=== PATIENT | male | born 1960 | race Asian ===

== ENCOUNTER 2020-04-21 12:16 | Outpatient (REF) | payer OTHER, SELFPAY ==
[2020-04-21 14:39] LABS: Alanine Aminotransferase 26 U/L (0-40); Albumin Level 4.3 g/dL (3.5-5.0); Alkaline Phosphatase 52 U/L (39-117); Anion Gap 12 (12-20); Aspartate Amino Transferase 43 U/L (5-37); Bilirubin Total 1.3 mg/dL (0.0-1.0); Blood Urea Nitrogen 17 mg/dL (9-16); Carbon Dioxide 30 mmol/L (22-29); Chloride 100 mmol/L (96-108); Cholesterol 146 mg/dL; Estimated Glomerular Filt Rate > 60; Glucose Fasting 94 mg/dL (60-99); HDL Cholesterol 52 mg/dL; LDL Cholesterol Calculated 74 mg/dl; Potassium 4.2 mmol/l (3.3-5.1); Sodium 138 mmol/L (135-145); Total Protein 6.8 g/dL (6.5-8.0); Triglycerides 100 mg/dL
== END 2020-04-21 12:17 | disposition home or self-care (01) ==
LOC: HO.10HDL 12:16
PROVIDERS: Visit Provider Internal Medicine
DX: E78.00 Pure hypercholesterolemia, unspecified (principal); I10 Essential (primary) hypertension; R73.01 Impaired fasting glucose
CPT/HCPCS: 80053; 80061

== ENCOUNTER 2020-08-18 09:38 | Outpatient (REF) | payer OTHER, SELFPAY ==
[2020-08-18 10:12] LABS: MANUAL DIFF FLAG NO
[2020-08-18 10:20] LABS: Basophils Percent Auto 0.5 % (0-2); Eosinophils Absolute Auto 0.2 X10*3/uL (0.0-0.4); Eosinophils Percent Auto 3.3 % (0-4); Hematocrit 41.7 % (42-52); Hemoglobin 13.9 g/dl (14.0-18.0); Imm Gran Abs Auto 0.01 X10*3/uL (0.00-0.03); Imm Gran Pct Auto 0.2 % (0.0-0.4); Lymphocytes Absolute Auto 2.3 X10*3/uL (1.2-4.9); Lymphocytes Percent Auto 37.7 % (20-40); Mean Corpuscular HGB Conc 33.3 g/dl (31.0-36.0); Mean Corpuscular Hemoglobin 29.7 pg (27.0-33.0); Mean Corpuscular Volume 89.1 fL (80-98); Mean Platelet Volume 9.2 fL (9.4-12.4); Monocytes Absolute Auto 0.4 X10*3/uL (0.1-1.2); Monocytes Percent Auto 6.5 % (2-11); Neutrophils Absolute Auto 3.2 X10*3/uL (2.0-8.3); Neutrophils Percent Auto 51.8 % (45-73); Platelet Count 326 X10*3/uL (160-400); Red Blood Count 4.68 X10*6/uL (4.60-5.80); Red Cell Distribution Width 12.1 % (11.0-16.0); White Blood Count 6.2 X10*3/uL (4.8-10.8)
[2020-08-18 10:35] LABS: Glucose Urine UA NEG (NEG); Leukocyte Esterase Urine NEG (NEG); Nitrite Urine NEG (NEG); PH 6.5 (5.0-8.0); Urine Blood NEG (NEG); Urine Ketones NEG (NEG); Urine Protein NEG (NEG-TRACE)
[2020-08-18 10:37] LABS: Appearance Urine CLEAR; Color Urine YELLOW
[2020-08-18 10:40] LABS: Alanine Aminotransferase 29 U/L (0-40); Albumin Level 4.7 g/dL (3.5-5.0); Alkaline Phosphatase 56 U/L (39-117); Anion Gap 12 (12-20); Aspartate Amino Transferase 52 U/L (5-37); Bilirubin Total 1.6 mg/dL (0.0-1.0); Blood Urea Nitrogen 18 mg/dL (9-16); Calcium 9.4 mg/dL (8.4-10.2); Carbon Dioxide 32 mmol/L (22-29); Chloride 98 mmol/L (96-108); Cholesterol 150 mg/dL; Estimated Glomerular Filt Rate > 60; Glucose Fasting 96 mg/dL (60-99); HDL Cholesterol 57 mg/dL; LDL Cholesterol Calculated 79 mg/dl; Potassium 3.9 mmol/L (3.3-5.1); Sodium 138 mmol/L (135-145); Total Protein 7.3 g/dL (6.5-8.0); Triglycerides 72 mg/dL
== END 2020-08-18 09:39 | disposition home or self-care (01) ==
LOC: HO.10HDL 09:38
PROVIDERS: Visit Provider Internal Medicine
DX: E78.00 Pure hypercholesterolemia, unspecified (principal); I10 Essential (primary) hypertension; R73.01 Impaired fasting glucose
CPT/HCPCS: 36415; 80053; 80061; 81003; 85025

== ENCOUNTER 2020-10-05 07:27 | Outpatient (REF) | payer OTHER, SELFPAY ==
--- NOTE | ~2020-10-05 | MR_ITS ---
EXAMINATION: MR LUMBAR SPINE WITHOUT CONTRAST CLINICAL INFORMATION: Lower back pain with right leg pain, numbness, weakness. COMPARISON: Lumbar spine radiographs dated 10/29/2011 TECHNIQUE: MRI of the lumbar spine was obtained using routine sequences without contrast. FINDINGS: VERTEBRAL BODIES AND PARASPINAL STRUCTURES: Straightening of the normal lumbar lordosis, which may be positional or related to muscular spasm. Minimal grade 1 retrolisthesis of L3 on L4. No acute fracture. No loss of vertebral body height. Loss of intervertebral disc height with disc desiccation at L2-L4 and at L5-S1. Modic type II degenerative endplate changes at L3-L4 and L5-S1. The visualized paraspinal soft tissues are unremarkable. CONUS MEDULLARIS AND CAUDA EQUINA: Normal, terminating at the level of L1. SPINAL LEVELS: T12-L1: Minimal disc bulge with bilateral facet arthropathy. No significant central canal or neural foraminal stenosis. L1-L2: Mild broad-based disc bulge with prominent bilateral facet arthropathy and thickening of the ligamentum flavum. No significant central canal or neural foraminal stenosis. L2-L3: Mild broad-based disc bulge with bilateral facet arthropathy and thickening of the ligamentum flavum causing mild central canal stenosis which encroaches upon the traversing bilateral L3 nerve roots. Additionally, this causes mild bilateral neural foraminal stenosis. L3-L4: Broad-based disc bulge with prominent bilateral facet arthropathy and thickening of the ligamentum flavum which causes [id number] central canal stenosis and encroaches upon the traversing bilateral L4 nerve roots. Additionally, this causes [id number] bilateral neural foraminal stenosis. L4-L5: Broad-based disc bulge with posterior annular fissuring. Prominent bilateral facet arthropathy and thickening of the ligamentum flavum causing moderate central canal stenosis which encroaches upon the traversing nerve roots as well as causes moderate bilateral neural foraminal stenosis, left greater than right. L5-S1: Broad-based disc bulge, slightly asymmetric to the right with bilateral facet arthropathy causing moderate central canal stenosis which encroaches upon the traversing bilateral S1 nerve roots. Additionally, this causes severe bilateral neural foraminal stenosis. MR/MR lumbar spine wo con IMPRESSION: 1. Broad-based disc bulge at L2-L3 with bilateral facet arthropathy and thickening of the ligamentum flavum causing mild central canal stenosis which encroaches upon the traversing bilateral L3 nerve roots and causes mild bilateral neural foraminal stenosis. 2. Broad-based disc bulge at L3-L4 with prominent bilateral facet arthropathy and thickening of the ligamentum flavum causing [id number] central canal stenosis encroaching upon the traversing bilateral L4 nerve roots and causing [id number] bilateral neural foraminal stenosis. 3. Broad-based disc bulge at L4-L5 with posterior annular fissuring, prominent bilateral facet arthropathy, and thickening of the ligamentum flavum causing moderate central canal stenosis encroaching upon the traversing nerve roots as well as causing moderate bilateral neural foraminal stenosis, left greater than right. 4. Broad-based disc bulge at L5-S1, slightly asymmetric to the right with bilateral facet arthropathy causing moderate central canal stenosis and encroaching upon the traversing bilateral L1 nerve roots as well as causing severe bilateral neural foraminal stenosis.
== END 2020-10-05 07:28 | disposition home or self-care (01) ==
LOC: HO.MRI 07:27
PROVIDERS: Visit Provider Internal Medicine
DX: M48.061 Spinal stenosis, lumbar region without neurogenic claudication (principal); M54.16 Radiculopathy, lumbar region; R20.2 Paresthesia of skin
CPT/HCPCS: 72148

== ENCOUNTER 2020-12-23 12:21 | Outpatient (REF) | payer OTHER, SELFPAY ==
[2020-12-23 13:44] LABS: Alanine Aminotransferase 28 U/L (0-40); Albumin Level 4.4 g/dL (3.5-5.0); Alkaline Phosphatase 63 U/L (39-117); Anion Gap 14 (12-20); Aspartate Amino Transferase 45 U/L (5-37); Blood Urea Nitrogen 17 mg/dL (9-16); Carbon Dioxide 29 mmol/L (22-29); Chloride 102 mmol/L (96-108); Cholesterol 157 mg/dL; Estimated Glomerular Filt Rate > 60; Glucose Fasting 120 mg/dL (60-99); HDL Cholesterol 59 mg/dL; LDL Cholesterol Calculated 64 mg/dl; Potassium 4.5 mmol/L (3.3-5.1); Sodium 140 mmol/L (135-145); Triglycerides 174 mg/dL
== END 2020-12-23 12:22 | disposition home or self-care (01) ==
LOC: HO.LAB 12:21
PROVIDERS: PCP Internal Medicine; Visit Provider Internal Medicine
DX: E78.00 Pure hypercholesterolemia, unspecified (principal); I10 Essential (primary) hypertension; R73.01 Impaired fasting glucose
CPT/HCPCS: 36415; 80053; 80061

== ENCOUNTER → 2020-12-28 09:47 | Outpatient (BNVA) | payer OTHER, SELFPAY | PROVIDERS: PCP Internal Medicine; Referring Provider Internal Medicine; Visit Provider Internal Medicine Cardiovascular Disease | DX: R07.89 Other chest pain (principal); I10 Essential (primary) hypertension; I45.10 Unspecified right bundle-branch block; E78.00 Pure hypercholesterolemia, unspecified; E55.9 Vitamin D deficiency, unspecified; E66.9 Obesity, unspecified; Z68.29 Body mass index [BMI] 29.0-29.9, adult | CPT/HCPCS: 93005 ==

== ENCOUNTER 2021-01-25 08:00 | Outpatient (RCR) | payer OTHER, SELFPAY | END 2021-03-10 13:18 | disposition home or self-care (01) | LOC: HO.PT 08:00 | PROVIDERS: PCP Internal Medicine; Visit Provider Neurological Surgery | DX: M54.16 Radiculopathy, lumbar region (principal) | CPT/HCPCS: 97110; 97140; 97161; 97530 ==

== ENCOUNTER 2021-05-18 09:09 | Outpatient (REF) | payer OTHER, SELFPAY ==
[2021-05-18 10:28] LABS: Alanine Aminotransferase 36 U/L (0-40); Albumin Level 4.5 g/dL (3.5-5.0); Alkaline Phosphatase 52 U/L (39-117); Anion Gap 13 (12-20); Aspartate Amino Transferase 60 U/L (5-37); Bilirubin Total 1.1 mg/dL (0.0-1.0); Blood Urea Nitrogen 12 mg/dL (9-16); Calcium 9.6 mg/dL (8.4-10.2); Carbon Dioxide 29 mmol/L (22-29); Chloride 100 mmol/L (96-108); Cholesterol 146 mg/dL; Estimated Glomerular Filt Rate > 60; Glucose Fasting 98 mg/dL (60-99); HDL Cholesterol 54 mg/dL; LDL Cholesterol Calculated 77 mg/dl; Potassium 3.9 mmol/L (3.3-5.1); Sodium 138 mmol/L (135-145); Triglycerides 79 mg/dL
== END 2021-05-18 09:10 | disposition home or self-care (01) ==
LOC: HO.10HDL 09:09
PROVIDERS: Visit Provider Internal Medicine
DX: E78.00 Pure hypercholesterolemia, unspecified (principal)
CPT/HCPCS: 36415; 80053; 80061

== ENCOUNTER 2021-09-19 13:02 | Outpatient (REF) | payer OTHER, SELFPAY ==
[2021-09-19 13:51] LABS: Alanine Aminotransferase 48 U/L (0-40); Albumin Level 4.4 g/dL (3.5-5.0); Alkaline Phosphatase 54 U/L (39-117); Anion Gap 12 (12-20); Aspartate Amino Transferase 57 U/L (5-37); Bilirubin Total 1.5 mg/dL (0.0-1.0); Blood Urea Nitrogen 17 mg/dL (9-16); Calcium 9.8 mg/dL (8.4-10.2); Carbon Dioxide 31 mmol/L (22-29); Chloride 99 mmol/L (96-108); Cholesterol 161 mg/dL; Estimated Glomerular Filt Rate > 60; Glucose Fasting 113 mg/dL (60-99); HDL Cholesterol 47 mg/dL; LDL Cholesterol Calculated 91 mg/dl; Potassium 4.1 mmol/L (3.3-5.1); Sodium 138 mmol/L (135-145); Total Protein 6.9 g/dL (6.5-8.0); Triglycerides 117 mg/dL
== END 2021-09-19 13:03 | disposition home or self-care (01) ==
LOC: HO.LAB 13:02
PROVIDERS: PCP Internal Medicine; Visit Provider Internal Medicine
DX: E78.00 Pure hypercholesterolemia, unspecified (principal)
CPT/HCPCS: 36415; 80053; 80061

== ENCOUNTER 2022-01-09 08:58 | Outpatient (REF) | payer OTHER, SELFPAY ==
--- NOTE | ~2022-01-09 | US_ITS ---
EXAMINATION: US ABDOMEN COMPLETE CLINICAL INFORMATION: Other specified abnormal findings of blood chemistry. COMPARISON: None TECHNIQUE: Real-time imaging of the abdominal viscera. FINDINGS: PANCREAS: The head and body pancreas is homogeneous. The tail is obscured by overlying gas ABDOMINAL AORTA: The proximal, mid, and distal segments are normal in caliber. INFERIOR VENA CAVA: Visualized portions are normal. LIVER: Normal. The liver is normal in size. The liver contour is normal. Parenchymal echogenicity is normal. No focal hepatic lesion. There is no intrahepatic biliary duct dilatation seen. GALLBLADDER: The gallbladder wall thickness is 0.2 cm. The gallbladder is physiologically distended without evidence of stones, sludge, polyps, wall thickening or pericholecystic fluid. COMMON BILE DUCT: Normal in caliber measuring 0.2 cm in diameter. RIGHT KIDNEY: Normal. No hydronephrosis. No renal calculi or focal parenchymal lesions. The kidney measures 10.6 cm in maximum dimension. LEFT KIDNEY: Normal. No hydronephrosis. No renal calculi or focal parenchymal lesions. The kidney measures 11.5 cm in maximum dimension. SPLEEN: Normal. The spleen measures 10.4 cm in maximum dimension. FREE FLUID: None. US/US abdomen complete IMPRESSION: Unremarkable complete abdominal ultrasound.
== END 2022-01-09 08:59 | disposition home or self-care (01) ==
LOC: HO.US 08:58
PROVIDERS: Visit Provider Internal Medicine
DX: R79.89 Other specified abnormal findings of blood chemistry (principal)
CPT/HCPCS: 76700

== ENCOUNTER 2022-03-16 12:19 | Outpatient (REF) | payer OTHER, SELFPAY ==
[2022-03-16 13:30] LABS: MANUAL DIFF FLAG NO
[2022-03-16 13:34] LABS: Basophils Percent Auto 0.5 % (0-2); Eosinophils Absolute Auto 0.3 X10*3/uL (0.0-0.4); Eosinophils Percent Auto 5.3 % (0-4); Hematocrit 42.4 % (42.0-52.0); Hemoglobin 14.4 g/dl (14.0-18.0); Imm Gran Abs Auto 0.01 X10*3/uL (0.00-0.03); Imm Gran Pct Auto 0.2 % (0.0-0.4); Lymphocytes Absolute Auto 1.8 X10*3/uL (1.2-4.9); Lymphocytes Percent Auto 31.5 % (20-40); Mean Corpuscular Hemoglobin 29.4 pg (27.0-33.0); Mean Corpuscular Volume 86.5 fL (80.0-98.0); Mean Platelet Volume 9.1 fL (9.4-12.4); Monocytes Absolute Auto 0.5 X10*3/uL (0.1-1.2); Monocytes Percent Auto 9.1 % (2-11); Neutrophils Absolute Auto 3.1 x10*3/uL (2.0-8.3); Neutrophils Percent Auto 53.4 % (45-73); Platelet Count 307 X10*3/uL (160-400); Red Cell Distribution Width 12.1 % (11.0-16.0); White Blood Count 5.9 X10*3/uL (4.8-10.8)
[2022-03-16 13:40] LABS: Appearance Urine Clear; Color Urine Yellow; Glucose Urine UA Negative (Negative); Leukocyte Esterase Urine Negative (Negative); Nitrite Urine Negative (Negative); Urine Blood Negative (Negative); Urine Ketones Negative (Negative); Urine Protein Negative (Neg-Trace)
[2022-03-16 14:16] LABS: Alanine Aminotransferase 31 U/L (0-40); Albumin Level 4.3 g/dL (3.5-5.0); Alkaline Phosphatase 57 U/L (39-117); Anion Gap 13 (12-20); Aspartate Amino Transferase 51 U/L (5-37); Bilirubin Total 1.5 mg/dL (0.0-1.0); Blood Urea Nitrogen 16 mg/dL (9-16); Calcium 9.4 mg/dL (8.4-10.2); Carbon Dioxide 30 mmol/L (22-29); Chloride 98 mmol/L (96-108); Cholesterol 146 mg/dL; Estimated Glomerular Filt Rate > 60; Glucose Fasting 114 mg/dL (60-99); HDL Cholesterol 48 mg/dL; LDL Cholesterol Calculated 76 mg/dl; Potassium 4.1 mmol/L (3.3-5.1); Sodium 137 mmol/L (135-145); Total Protein 6.9 g/dL (6.5-8.0); Triglycerides 114 mg/dL
== END 2022-03-16 12:20 | disposition home or self-care (01) ==
LOC: HO.10HDL 12:19
PROVIDERS: Visit Provider Internal Medicine
DX: I10 Essential (primary) hypertension (principal); E78.00 Pure hypercholesterolemia, unspecified; R79.89 Other specified abnormal findings of blood chemistry
CPT/HCPCS: 36415; 80053; 80061; 81003; 85025

== ENCOUNTER 2022-08-01 08:14 | Outpatient (REF) | payer OTHER, SELFPAY ==
[2022-08-01 11:35] LABS: Appearance Urine Clear; Color Urine Yellow; Glucose Urine UA Negative (Negative); Leukocyte Esterase Urine Negative (Negative); Nitrite Urine Negative (Negative); PH 5.5 (5.0-9.0); Specific Gravity - Urine 1.015 (1.005-1.025); Urine Blood Negative (Negative); Urine Ketones Negative (Negative); Urine Protein Negative (Neg-Trace)
[2022-08-01 11:39] LABS: Alanine Aminotransferase 48 U/L (0-40); Albumin Level 4.7 g/dL (3.5-5.0); Alkaline Phosphatase 68 U/L (39-117); Anion Gap 14 (12-20); Aspartate Amino Transferase 54 U/L (5-37); Bilirubin Total 1.2 mg/dL (0.0-1.0); Blood Urea Nitrogen 17 mg/dL (9-16); Calcium 9.8 mg/dL (8.4-10.2); Carbon Dioxide 31 mmol/L (22-29); Chloride 99 mmol/L (96-108); Cholesterol 186 mg/dL; Estimated Glomerular Filt Rate > 60; Glucose Fasting 119 mg/dL (60-99); HDL Cholesterol 57 mg/dL; LDL Cholesterol Calculated 105 mg/dl; Potassium 4.2 mmol/L (3.3-5.1); Sodium 140 mmol/L (135-145); Total Protein 7.5 g/dL (6.5-8.0); Triglycerides 120 mg/dL
[2022-08-01 12:35] LABS: Creatinine Urine 119.15 mg/dL; Microalbum/Creatinine Ratio Ur 8.3 ug/mg cr
== END 2022-08-01 08:15 | disposition home or self-care (01) ==
LOC: HO.10HDL 08:14
PROVIDERS: Visit Provider Internal Medicine
DX: E11.9 Type 2 diabetes mellitus without complications (principal); R30.0 Dysuria; E78.00 Pure hypercholesterolemia, unspecified
CPT/HCPCS: 36415; 80053; 80061; 81003; 82043

== ENCOUNTER 2022-11-23 09:08 | Outpatient (REF) | payer OTHER, SELFPAY ==
[2022-11-23 10:19] LABS: MANUAL DIFF FLAG NO
[2022-11-23 10:29] LABS: Basophils Percent Auto 0.4 % (0-2); Eosinophils Absolute Auto 0.2 X10*3/uL (0.0-0.4); Eosinophils Percent Auto 2.3 % (0-4); Hemoglobin 13.2 g/dl (14.0-18.0); Imm Gran Abs Auto 0.02 X10*3/uL (0.00-0.03); Imm Gran Pct Auto 0.3 % (0.0-0.4); Lymphocytes Absolute Auto 2.3 X10*3/uL (1.2-4.9); Lymphocytes Percent Auto 30.6 % (20-40); Mean Corpuscular HGB Conc 33.8 g/dl (31.0-36.0); Mean Corpuscular Hemoglobin 30.3 pg (27.0-33.0); Mean Corpuscular Volume 89.4 fL (80.0-98.0); Mean Platelet Volume 8.7 fL (9.4-12.4); Monocytes Absolute Auto 0.6 X10*3/uL (0.1-1.2); Monocytes Percent Auto 8.1 % (2-11); Neutrophils Absolute Auto 4.3 x10*3/uL (2.0-8.3); Neutrophils Percent Auto 58.3 % (45-73); Platelet Count 371 X10*3/uL (160-400); Red Blood Count 4.36 X10*6/uL (4.60-5.80); Red Cell Distribution Width 13.2 % (11.0-16.0); White Blood Count 7.4 X10*3/uL (4.8-10.8)
[2022-11-23 10:42] LABS: Appearance Urine Clear; Color Urine Yellow; Glucose Urine UA Negative (Negative); Leukocyte Esterase Urine Negative (Negative); Nitrite Urine Negative (Negative); PH 7.5 (5.0-9.0); Urine Blood Negative (Negative); Urine Ketones Negative (Negative); Urine Protein Negative (Neg-Trace)
[2022-11-23 11:02] LABS: Alanine Aminotransferase 26 U/L (0-40); Albumin Level 4.4 g/dL (3.5-5.0); Alkaline Phosphatase 57 U/L (39-117); Anion Gap 12 (12-20); Aspartate Amino Transferase 46 U/L (5-37); Bilirubin Total 1.5 mg/dL (0.0-1.0); Blood Urea Nitrogen 18 mg/dL (9-16); Calcium 10.2 mg/dL (8.4-10.2); Carbon Dioxide 32 mmol/L (22-29); Chloride 95 mmol/L (96-108); Cholesterol 144 mg/dL; Estimated Glomerular Filt Rate > 60; Glucose Fasting 87 mg/dL (60-99); HDL Cholesterol 61 mg/dL; LDL Cholesterol Calculated 73 mg/dl; Potassium 4.2 mmol/L (3.3-5.1); Sodium 135 mmol/L (135-145); Total Protein 7.4 g/dL (6.5-8.0); Triglycerides 53 mg/dL
[2022-11-23 11:14] LABS: Creatinine Urine 45.36 mg/dL; Microalbumin Urine < 5.0 mg/L
== END 2022-11-23 09:09 | disposition home or self-care (01) ==
LOC: HO.10HDL 09:08
PROVIDERS: Visit Provider Internal Medicine
DX: I10 Essential (primary) hypertension (principal); R30.0 Dysuria; E11.9 Type 2 diabetes mellitus without complications; E78.00 Pure hypercholesterolemia, unspecified
CPT/HCPCS: 36415; 80053; 80061; 81003; 82043; 85025

== ENCOUNTER 2023-03-08 12:30 | Outpatient (REF) | payer OTHER, SELFPAY ==
[2023-03-08 13:24] LABS: Basophils Percent Auto 0.5 % (0-2); Eosinophils Absolute Auto 0.3 X10*3/uL (0.0-0.4); Eosinophils Percent Auto 4.7 % (0-4); Hematocrit 43.8 % (42.0-52.0); Hemoglobin 14.7 g/dl (14.0-18.0); Imm Gran Abs Auto 0.01 X10*3/uL (0.00-0.03); Imm Gran Pct Auto 0.2 % (0.0-0.4); Lymphocytes Percent Auto 35.6 % (20-40); MANUAL DIFF FLAG SCAN; Mean Corpuscular HGB Conc 33.6 g/dl (31.0-36.0); Mean Corpuscular Hemoglobin 29.5 pg (27.0-33.0); Monocytes Absolute Auto 0.5 X10*3/uL (0.1-1.2); Monocytes Percent Auto 8.1 % (2-11); Neutrophils Absolute Auto 2.9 x10*3/uL (2.0-8.3); Neutrophils Percent Auto 50.9 % (45-73); PLT CLUMP 1; Red Blood Count 4.98 X10*6/uL (4.60-5.80); Red Cell Distribution Width 11.9 % (11.0-16.0); SCAN SMEAR FLAG 1; White Blood Count 5.7 X10*3/uL (4.8-10.8)
[2023-03-08 13:43] LABS: Estimated Average Glucose 120 mg/dL; Hemoglobin A1c % 5.8 % (<6.0)
[2023-03-08 13:55] LABS: Platelet Count 286 X10*3/uL (160-400); SLIDE REVIEW VERIFIED
[2023-03-08 14:15] LABS: Alanine Aminotransferase 22 U/L (0-40); Albumin Level 4.4 g/dL (3.5-5.0); Alkaline Phosphatase 57 U/L (39-117); Anion Gap 15 (12-20); Aspartate Amino Transferase 46 U/L (5-37); Bilirubin Total 1.2 mg/dL (0.0-1.0); Blood Urea Nitrogen 14 mg/dL (9-16); Calcium 9.5 mg/dL (8.4-10.2); Carbon Dioxide 28 mmol/L (22-29); Chloride 99 mmol/L (96-108); Cholesterol 148 mg/dL (<200); Estimated Glomerular Filt Rate > 60; Glucose Fasting 104 mg/dL (60-99); HDL Cholesterol 53 mg/dL (>40); LDL Cholesterol Calculated 71 mg/dL (<100); Potassium 4.2 mmol/L (3.3-5.1); Sodium 138 mmol/L (135-145); Total Protein 7.3 g/dL (6.5-8.0); Triglycerides 124 mg/dL (<150)
[2023-03-08 14:30] LABS: TSH reflex Free T4 0.51 uIU/mL (0.32-4.0)
== END 2023-03-08 12:31 | disposition home or self-care (01) ==
LOC: HO.10HDL 12:30
PROVIDERS: Visit Provider Nurse Practitioner Family
DX: Z13.0 Encounter for screening for diseases of the blood and blood-forming organs and certain disorders involving the immune mechanism (principal); Z13.29 Encounter for screening for other suspected endocrine disorder; E11.65 Type 2 diabetes mellitus with hyperglycemia; E78.00 Pure hypercholesterolemia, unspecified
CPT/HCPCS: 36415; 80053; 80061; 83036; 84443; 85025

== ENCOUNTER 2023-03-15 09:21 | Outpatient (AMB) | payer OTHER, SELFPAY ==
--- NOTE | 2023-03-15 09:21 | MHC.PC.OV ---
Vital Signs 03/15/23 09:22 Height 5 ft 11 in Weight 202 lb BMI 28.2 BP 122/74 Blood Pressure Location Lt brachial Position Sitting Pulse 71 Pulse Source Pulse Oximeter Pulse Oximetry (%) 98 Oxygen Delivery Method Room Air Intake Visit Reasons: DM, HTN, Hypercholestermia Pants Presser Required: No Accompanied by: Self / Same As Patient Allergies No Known Allergies Allergy (Verified 03/15/23 09:32) Medication List - Last Reconciled 03/15/23 by Ramo Thomas MD aspirin (Adult Low Dose Aspirin) 81 mg PO DAILY atorvastatin 20 mg PO DAILY celecoxib 200 mg PO DAILY PRN ergocalciferol (vitamin D2) (Vitamin D2) 1,250 mcg PO QWEEK fluticasone propionate 50 mcg/actuation 1 spray intranasal DAILY lisinopril-hydrochlorothiazide 20-25 mg 1 tab PO DAILY metformin 500 mg PO DAILY 30 days tizanidine 4 mg PO TID PRN 30 days tramadol 50 mg PO BID PRN Tobacco use date assessed: 03/15/23 Dental Screening Dental Screen Date: 03/15/23 Did you have a dental visit in the last 12 months?: Yes Did you have a dental problem in the last 6 months where you did not have access to dental care?: No Was dental information given to patient?: Patient has dentist HPI DM, HTN, Hypercholestermia HPI Details Patient comes in today for his follow up visit States that he feels okay Still has chronic low back pain that bothers him a lot frequently Sees Dr. Kaba at [facility] for pain management and states that the last cortisone injection he got from him in November 2022 provided him with some relief that only lasted for about a week Does not know what else he can do Notes that cold weather/rainy weather as well as prolonged walking seem to make his pain feel worse and they tend to gradually ease up with activity He denies any headaches or dizziness Denies any chest pains, no SOB No nausea/vomiting, no abdominal pain No change in bowel habits noted Needs his Tramadol Rx refilled today - states that he mostly just takes this once a day as needed Had his follow up labs done last week - to discuss his results [facility] Medical History Diabetes mellitus Paresthesia of right lower extremity Spinal stenosis of lumbar region with radiculopathy Overweight (BMI 25.0-29.9) Calcaneal spur, left Osteoarthritis of left shoulder Lumbar degenerative disc disease Left-sided chest wall pain Allergic rhinitis Vitamin D deficiency Benign essential hypertension Pure hypercholesterolemia Surgical History No significant past surgical history Family History Father Hypertension Diabetes mellitus Social History Housing: House Alcohol intake: current Alcohol intake frequency: a few times a month Alcohol type: wine Patient Tobacco Use Status: Never used Tobacco e-Cigarette/Vaping Use: Never Used Second Hand Smoke Exposure: No service: No Current occupational status: employed 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 1. Little interest or pleasure in doing things: not at all 2. Feeling down, depressed, or hopeless: not at all 3. Trouble falling or staying asleep, or sleeping too much: not at all 4. Feeling tired or having little energy: not at all 5. Poor appetite or overeating: not at all 6. Feeling bad about yourself - or that you are a failure or have let yourself or your family down: not at all 7. Trouble concentrating on things, such as reading the newspaper or watching television: not at all 8. Moving or speaking so slowly that other people could have noticed. Or the opposite - being so fidgety or restless that you have been moving around a lot more than usual: not at all 9. Thoughts that you would be better off or of hurting yourself in some way: not at all Total score: 0 Depression Screening Interpretation: Negative Depression Screening Done: Yes 20802 - PHQ-9 Billing: Yes Source: Developed by Drs. Dieudonne Marion, Nerissa Sweeney, Lalo Emmanuel and colleagues, with an educational mandeep from [employer]. Thrive Questionnaire Date Thrive assessed: 03/15/23 I am a: Patient What is your living situation today?: I have a steady place to live Within the past 12 months, did the food you bought not last and you didn't have the money to get more?: Never true Within the past 12 months, did you worry whether your food would run out before you got money to buy more?: Never true Do you have trouble paying for medicines?: No Do you have trouble getting transportation to medical appointments?: No Do you have trouble paying your heating and electricity bill?: No Do you have trouble taking care of your child, family member or friend?: No Do you have trouble with day-to-day activities such as bathing, preparing meals, shopping, managing finances, etc.?: No Are you currently unemployed and looking for a job?: No Are you interested in more education?: No Please select the resources that you would like help with: None Currently or been in a relationship where the following occur: no concerns reported AUDIT C Alcohol Use Questionnaire (AUDIT-C) 1. How often do you have a drink containing alcohol?: 2-4 times a month 2. How many drinks containing alcohol do you have on a typical day when you are drinking?: 1 or 2 3. How often do you have six or more drinks on one occasion?: Never Total Score: 2 Score Reviewed/Action Taken: Yes AMIRA-7 AMB Questionnaire AMIRA-7 Date AMIRA - 7 assessed: 03/15/23 Feeling nervous, anxious, or on edge: 0 = Not at all Not being able to stop or control worryin = Not at all Worrying too much about different things: 0 = Not at all Trouble relaxin = Not at all Being so restless that it is hard to sit still: 0 = Not at all Becoming easily annoyed or irritable: 0 = Not at all Feeling afraid as if something awful might happen: 0 = Not at all Total AMIRA-7 score (0-4 normal; 5-9 mild; 10-14 moderate; 15-21 severe): 0 Source: Developed by Drs. Dieudonne Marion, Nerissa Sweeney, Lalo Emmanuel and colleagues, with an educational mandeep from [employer]. Review of Systems Const Denies chills, Denies fatigue, Denies fever(s) and Denies headache(s) ENT Denies dysphagia, Denies dizziness, Denies otalgia, Denies headache(s), Denies neck pain, Denies odynophagia and Denies sore throat Card Denies chest pain, Denies palpitations and Denies dyspnea Resp Denies cough and Denies dyspnea GI Details: (+) frequent flare ups of his hemorrhoids lately Denies abdominal pain, Denies constipation, Denies dysphagia, Denies heartburn, Denies diarrhea, Denies nausea, Denies odynophagia and Denies vomiting Denies dysuria, Denies nocturia and Denies urinary frequency Musc Reports back pain (recurrent - improved slightly with PT but failed back injection), Denies neck pain and Reports tingling (into the right leg and foot, on and off) Skin/Breast Denies rash Neuro Denies dizziness, Denies headache(s) and Reports tingling (into the right leg and foot, on and off) Endo Denies fatigue and Denies palpitations Physical exam (Primary Care) Vital Signs: Last Vital Signs Pulse 71 03/15/23 09:22 BP 122/74 03/15/23 09:22 Pulse Ox 98 03/15/23 09:22 Oxygen Delivery Method Room Air 03/15/23 09:22 BMI result Body Mass Index 28.2 Tobacco/Smoking Status: Tobacco use Status Tobacco use date assessed 03/15/23 03/15/23 09:28 Patient Tobacco Use Status Never used Tobacco 03/15/23 09:28 e-Cigarette/Vaping Use Never Used 03/15/23 09:28 PHQ-9: PHQ-9 Score PHQ-9: Total score 0 03/15/23 09:36 Depression Screening Interpretation: Negative Thrive Assessment: Date of Thrive Assessment Date Thrive assessed 03/15/23 03/15/23 09:28 Currently or been in a relationship where the following occur: no concerns reported Const General: no acute distress and alert HENMT Ears: TM's normal bilaterally and EAC's normal Throat: Yes posterior oropharynx normal and Yes tonsils normal Neck Neck: Yes no lymphadenopathy and Yes supple Resp Auscultation: clear to auscultation bilaterally, no rales and no wheezes Cardio Rate: regular rate Rhythm: regular rhythm Heart sounds: no murmurs GI Palpation (GI): Soft to palpation and nontender Auscultation: normal bowel sounds Back/Spine/Pelvis Thoracic/Lumbar Spine: lumbar spinal tenderness Extrem General: Yes no clubbing, cyanosis or edema Results Reviewed Results Reviewed: Laboratory Tests 03/08/23 12:40 WBC 5.7 Hgb 14.7 Hct 43.8 Plt Count 286 Sodium 138 Potassium 4.2 Creatinine 0.84 Estimated GFR > 60 Fasting Glucose 104 H Hemoglobin A1c % 5.8 Calcium 9.5 D Total Bilirubin 1.2 H AST 46 H ALT 22 Triglycerides 124 Cholesterol 148 LDL Cholesterol, Calc 71 HDL Cholesterol 53 TSH 0.51 Assessment and Plan Assessment & Plan (1) Diabetes mellitus: Code(s): E11.9 - Type 2 diabetes mellitus without complications Qualifiers: Diabetes mellitus complication status: with hyperglycemia Diabetes mellitus penitentiary insulin use: without penitentiary use Diabetes mellitus type: type 2 Qualified Code(s): E11.65 - Type 2 diabetes mellitus with hyperglycemia Plan: HgbA1c is at 5.8.% on his recent labs (was at 6.0% a few months ago) - goal is <6.5% Reinforced diabetic diet Continue Metformin 500 mg QD - dose was lowered to QD dosing a few months ago Patient is hoping that if he can continue to get his HgbA1c lower than 5.8%, we can try to get him off his Rx again and keep his diabetes under control with diet modification and exercise alone (2) Pure hypercholesterolemia: Code(s): E78.00 - Pure hypercholesterolemia, unspecified Plan: Results of his labs done last week reviewed and discussed with patient Reinforced low cholesterol diet Continue Atorvastatin 20 mg QD Will recheck his labs and fasting lipids in 4 months for follow up (3) Benign essential hypertension: Code(s): I10 - Essential (primary) hypertension Plan: Reinforced low sodium diet - goal is systolic BP of 120 mm or less Continue Lisinopril-HCT 20-25 mg QD (4) Elevated LFTs: Code(s): R79.89 - Other specified abnormal findings of blood chemistry Plan: Advised that his LFTs and total bilirubin level are still slightly elevated on his recent labs Patient had an abdominal US done back in January 2022 that came out normal Patient cautioned again about taking too much Tylenol/Acetaminophen and also reminded to abstain from alcohol completely - states that he still drinks a glass of red wine every now and then Will continue to monitor his LFTs regularly (5) Vitamin D deficiency: Code(s): E55.9 - Vitamin D deficiency, unspecified Plan: Continue Vitamin D2 23834 units once a week (6) Spinal stenosis of lumbar region with radiculopathy: Comment: Lumbar spine MRI done on 06/16/2012 showed (+) spondylitic and degenerative disc changes of the lumbar spine superimposed upon a congenitally narrowed spinal canal, with foraminal narrowing most prominent at L5-S1. No discrete nerve root impingement was seen at this time Code(s): M48.061 - Spinal stenosis, lumbar region without neurogenic claudication; M54.16 - Radiculopathy, lumbar region Plan: Reinforced activity and weight-lifting restrictions Continue Tramadol 50 mg TID PRN for increased pain Has been seen by neurosurgery and was referred to physical therapy - has been to PT about 3 times and states that physical therapy has helped somewhat Has also received back injection from Dr. Kaba last year on 01/30/2021, which he states helped somewhat but another injection back in November 2022 only provided him with some relief for a week Is advised to continue following up with Dr. Kaba for management of his low back pain (7) Allergic rhinitis: Code(s): J30.9 - Allergic rhinitis, unspecified Qualifiers: Allergic rhinitis seasonality: unspecified Allergic rhinitis trigger: unspecified Qualified Code(s): J30.9 - Allergic rhinitis, unspecified Plan: Continue Fluticasone nasal spray QD PRN (8) Osteoarthritis of left shoulder: Code(s): M19.012 - Primary osteoarthritis, left shoulder Qualifiers: Osteoarthritis type: primary Qualified Code(s): M19.012 - Primary osteoarthritis, left shoulder Plan: X-rays of the left shoulder done a couple of years ago showed (+) mild to moderate arthritis changes Continue Celecoxib 200 mg QD PRN Patient is again encouraged to continue with regular shoulder exercises to help manage his shoulder symptoms more effectively (9) Overweight (BMI 25.0-29.9): Code(s): E66.3 - Overweight Plan: Reinforced diet/exercise as tolerated/lose weight Plan Follow up in 4 months Orders: Orders Complete Blood Count Auto Diff 4 Months I10 - Essential (primary) hypertension Comprehensive [place]. Panel Fast 4 Months E78.00 - Pure hypercholesterolemia, unspecified Microalbumin, Random (w Creat) 4 Months E11.9 - Type 2 diabetes mellitus without complications Lipid Panel 4 Months E78.00 - Pure hypercholesterolemia, unspecified Hemoglobin A1c 4 Months E11.9 - Type 2 diabetes mellitus without complications TSH reflex Free T4 4 Months E78.00 - Pure hypercholesterolemia, unspecified UA CC w/rflx Micro + Cult 4 Months R30.0 - Dysuria Vitamin D 25-OH Total 4 Months E55.9 - Vitamin D deficiency, unspecified Medications: Refilled tramadol 50 mg PO BID PRN 60 tabs 0RF pain Coding Level of Care Code Est Pt Level 4 (33151) Diagnoses Type 2 diabetes mellitus with hyperglycemia, without long-term current use of insulin E11.65 Diabetes mellitus complication status: with hyperglycemia Diabetes mellitus penitentiary insulin use: without joint terminal attack controller use Diabetes mellitus type: type 2 Pure hypercholesterolemia E78.00 Benign essential hypertension I10 Elevated LFTs R79.89 Vitamin D deficiency E55.9 Spinal stenosis of lumbar region with radiculopathy M48.061; M54.16 Allergic rhinitis, unspecified seasonality, unspecified trigger J30.9 Allergic rhinitis seasonality: unspecified Allergic rhinitis trigger: unspecified Primary osteoarthritis of left shoulder M19.012 Osteoarthritis type: primary Overweight (BMI 25.0-29.9) E66.3
[2023-03-15 09:22] VITALS: BP 122/74; PULSE 71; O2SAT 98; BMI 28.2
== END 2023-03-15 09:55 | disposition home or self-care (01) ==
PROVIDERS: PCP Internal Medicine; Visit Provider Internal Medicine
DX: E11.65 Type 2 diabetes mellitus with hyperglycemia (principal); E78.00 Pure hypercholesterolemia, unspecified; I10 Essential (primary) hypertension; R79.89 Other specified abnormal findings of blood chemistry; E55.9 Vitamin D deficiency, unspecified; M48.061 Spinal stenosis, lumbar region without neurogenic claudication; M54.16 Radiculopathy, lumbar region; J30.9 Allergic rhinitis, unspecified; M19.012 Primary osteoarthritis, left shoulder; E66.3 Overweight
CPT/HCPCS: 99214

== ENCOUNTER 2023-07-16 09:32 | Outpatient (REF) | payer OTHER, SELFPAY ==
[2023-07-16 09:58] LABS: MANUAL DIFF FLAG NO
[2023-07-16 10:34] LABS: Basophils Percent Auto 0.4 % (0-2); Eosinophils Absolute Auto 0.4 X10*3/uL (0.0-0.4); Eosinophils Percent Auto 4.4 % (0-4); Hematocrit 40.6 % (42.0-52.0); Hemoglobin 13.8 g/dl (14.0-18.0); Imm Gran Abs Auto 0.01 X10*3/uL (0.00-0.03); Imm Gran Pct Auto 0.1 % (0.0-0.4); Lymphocytes Absolute Auto 2.5 X10*3/uL (1.2-4.9); Lymphocytes Percent Auto 31.5 % (20-40); Mean Corpuscular Hemoglobin 29.5 pg (27.0-33.0); Mean Corpuscular Volume 86.8 fL (80.0-98.0); Monocytes Absolute Auto 0.5 X10*3/uL (0.1-1.2); Monocytes Percent Auto 6.7 % (2-11); Neutrophils Absolute Auto 4.5 x10*3/uL (2.0-8.3); Neutrophils Percent Auto 56.9 % (45-73); Platelet Count 327 X10*3/uL (160-400); Red Blood Count 4.68 X10*6/uL (4.60-5.80); Red Cell Distribution Width 12.5 % (11.0-16.0); White Blood Count 7.9 X10*3/uL (4.8-10.8)
[2023-07-16 10:45] LABS: Estimated Average Glucose 120 mg/dL; Hemoglobin A1c % 5.8 % (<6.0)
[2023-07-16 10:57] LABS: Appearance Urine Clear; Color Urine Yellow; Glucose Urine UA Negative (Negative); Leukocyte Esterase Urine Negative (Negative); Nitrite Urine Negative (Negative); PH 6.5 (5.0-9.0); Specific Gravity - Urine <= 1.005 (1.005-1.025); Urine Blood Negative (Negative); Urine Ketones Negative (Negative); Urine Protein Negative (Neg-Trace)
[2023-07-16 11:26] LABS: Alanine Aminotransferase 38 U/L (0-40); Albumin Level 4.4 g/dL (3.5-5.0); Alkaline Phosphatase 62 U/L (39-117); Anion Gap 11 (12-20); Aspartate Amino Transferase 59 U/L (5-37); Bilirubin Total 0.8 mg/dL (0.0-1.0); Blood Urea Nitrogen 18 mg/dL (9-16); Calcium 9.6 mg/dL (8.4-10.2); Carbon Dioxide 31 mmol/L (22-29); Chloride 100 mmol/L (96-108); Cholesterol 164 mg/dL (<200); Estimated Glomerular Filt Rate > 60; Glucose Fasting 103 mg/dL (60-99); HDL Cholesterol 57 mg/dL (>40); LDL Cholesterol Calculated 83 mg/dL (<100); Potassium 4.1 mmol/L (3.3-5.1); Sodium 138 mmol/L (135-145); Total Protein 7.4 g/dL (6.5-8.0); Triglycerides 123 mg/dL (<150)
[2023-07-16 11:47] LABS: TSH reflex Free T4 0.85 uIU/mL (0.32-4.0); Vitamin D 25-OH Total 27.1 ng/mL (>30)
[2023-07-16 12:25] LABS: Creatinine Urine 28.44 mg/dL; Microalbumin Urine < 5.0 mg/L
== END 2023-07-16 09:33 | disposition home or self-care (01) ==
LOC: HO.LAB 09:32
PROVIDERS: PCP Internal Medicine; Visit Provider Internal Medicine
DX: E78.00 Pure hypercholesterolemia, unspecified (principal); E11.9 Type 2 diabetes mellitus without complications; R30.0 Dysuria; I10 Essential (primary) hypertension; E55.9 Vitamin D deficiency, unspecified
CPT/HCPCS: 36415; 80053; 80061; 81003; 82043; 82306; 82570; 83036; 84443; 85025

== ENCOUNTER 2023-07-19 09:40 | Outpatient (AMB) | payer OTHER, SELFPAY ==
[2023-07-19 09:53] VITALS: BP 118/72; PULSE 65; O2SAT 97; BMI 29.2
--- NOTE | 2023-07-19 09:53 | A.OFFPC_ITS ---
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: No Accompanied by: Self / Same As Patient Allergies No Known Allergies Allergy (Verified 07/19/23 10:07) Medication List - Last Reconciled 07/19/23 by Ramo Thomas MD aspirin (Adult Low Dose Aspirin) 81 mg PO DAILY atorvastatin 20 mg PO DAILY celecoxib 200 mg PO DAILY PRN ergocalciferol (vitamin D2) (Vitamin D2) 1,250 mcg PO QWEEK fluticasone propionate 50 mcg/actuation 1 spray intranasal DAILY lisinopril-hydrochlorothiazide 20-25 mg 1 tab PO DAILY metformin 500 mg PO DAILY 30 days tizanidine 4 mg PO TID PRN 30 days tramadol 50 mg PO BID PRN Tobacco use date assessed: 07/19/23 Dental Screening Dental Screen Date: 07/19/23 Did you have a dental visit in the last 12 months?: Yes Did you have a dental problem in the last 6 months where you did not have access to dental care?: No Was dental information given to patient?: Patient has dentist HPI HTN, DM, hyperlipidemia, lumbar DDD HPI Details Patient comes in today for his follow up visit States that he feels okay He denies any headaches or dizziness Still has on and off nasal congestion and he feels this more often on the right side (in the right nostril) Relates also on and off nosebleeds lately States that he has been using his Fluticasone nasal spray regularly and feels that it helps with his symptoms Denies any chest pains, no SOB No nausea/vomiting, no abdominal pain No change in bowel habits noted Still has recurrent low back pain with frequent radiation of pain down his right leg States that his lower back pain and right leg pain and weakness is still bothering him a lot and he is unable to walk for more than a couple of blocks without stopping Is requesting for another MRI for further evaluation Had his follow up labs done a few days ago - to discuss his results [facility] Medical History Diabetes mellitus Paresthesia of right lower extremity Spinal stenosis of lumbar region with radiculopathy Overweight (BMI 25.0-29.9) Calcaneal spur, left Osteoarthritis of left shoulder Lumbar degenerative disc disease Left-sided chest wall pain Allergic rhinitis Vitamin D deficiency Benign essential hypertension Pure hypercholesterolemia Surgical History No significant past surgical history Family History Father Hypertension Diabetes mellitus Social History Housing: House Alcohol intake: current Alcohol intake frequency: a few times a month Alcohol type: wine Patient Tobacco Use Status: Never used Tobacco e-Cigarette/Vaping Use: Never Used Second Hand Smoke Exposure: No service: No Current occupational status: employed 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 1. Little interest or pleasure in doing things: not at all 2. Feeling down, depressed, or hopeless: not at all 3. Trouble falling or staying asleep, or sleeping too much: not at all 4. Feeling tired or having little energy: not at all 5. Poor appetite or overeating: not at all 6. Feeling bad about yourself - or that you are a failure or have let yourself or your family down: not at all 7. Trouble concentrating on things, such as reading the newspaper or watching television: not at all 8. Moving or speaking so slowly that other people could have noticed. Or the opposite - being so fidgety or restless that you have been moving around a lot more than usual: not at all 9. Thoughts that you would be better off or of hurting yourself in some way: not at all Total score: 0 Depression Screening Interpretation: Negative Depression Screening Done: Yes 99574 - PHQ-9 Billing: Yes Source: Developed by Drs. Dieudonne Marion, Nerissa Sweeney, Lalo Emmanuel and colleagues, with an educational mandeep from [employer]. Thrive Questionnaire Date Thrive assessed: 07/19/23 I am a: Patient What is your living situation today?: I have a steady place to live Within the past 12 months, did the food you bought not last and you didn't have the money to get more?: Never true Within the past 12 months, did you worry whether your food would run out before you got money to buy more?: Never true Do you have trouble paying for medicines?: No Do you have trouble getting transportation to medical appointments?: No Do you have trouble paying your heating and electricity bill?: No Do you have trouble taking care of your child, family member or friend?: No Do you have trouble with day-to-day activities such as bathing, preparing meals, shopping, managing finances, etc.?: No Are you currently unemployed and looking for a job?: No Are you interested in more education?: No Please select the resources that you would like help with: None Currently or been in a relationship where the following occur: no concerns reported THRIVE Score: 0 AUDIT C Alcohol Use Questionnaire (AUDIT-C) 1. How often do you have a drink containing alcohol?: 2-4 times a month 2. How many drinks containing alcohol do you have on a typical day when you are drinking?: 1 or 2 3. How often do you have six or more drinks on one occasion?: Never Total Score: 2 Score Reviewed/Action Taken: Yes AMIRA-7 AMB Questionnaire AMIRA-7 Date AMIRA - 7 assessed: 07/19/23 Feeling nervous, anxious, or on edge: 0 = Not at all Not being able to stop or control worryin = Not at all Worrying too much about different things: 0 = Not at all Trouble relaxin = Not at all Being so restless that it is hard to sit still: 0 = Not at all Becoming easily annoyed or irritable: 0 = Not at all Feeling afraid as if something awful might happen: 0 = Not at all Total AMIRA-7 score (0-4 normal; 5-9 mild; 10-14 moderate; 15-21 severe): 0 Source: Developed by Drs. Dieudonne Marion, Nerissa Sweeney, Lalo Emmanuel and colleagues, with an educational mandeep from [employer]. Review of Systems Const Denies chills, Denies fatigue, Denies fever(s) and Denies headache(s) ENT Denies dysphagia, Denies dizziness, Denies otalgia, Denies headache(s), Reports epistaxis (occasionally), Reports nasal congestion (on and off, more often on the right side), Denies neck pain, Denies odynophagia and Denies sore throat Card Denies chest pain, Denies palpitations and Denies dyspnea Resp Denies cough and Denies dyspnea GI Denies abdominal pain, Denies constipation, Denies dysphagia, Denies heartburn, Denies diarrhea, Denies nausea, Denies odynophagia and Denies vomiting Denies dysuria, Denies nocturia and Denies urinary frequency Musc Reports back pain (recurrent - improved slightly with PT but failed back injection), Denies neck pain and Reports tingling (into the right leg and foot, on and off) Skin/Breast Denies rash Neuro Denies dizziness, Denies headache(s) and Reports tingling (into the right leg and foot, on and off) Endo Denies fatigue and Denies palpitations Physical exam (Primary Care) Vital Signs: Last Vital Signs Pulse 65 07/19/23 09:53 BP 118/72 07/19/23 09:53 Pulse Ox 97 07/19/23 09:53 Oxygen Delivery Method Room Air 07/19/23 09:53 BMI result Body Mass Index 29.2 Tobacco/Smoking Status: Tobacco use Status Tobacco use date assessed 07/19/23 07/19/23 09:59 Patient Tobacco Use Status Never used Tobacco 07/19/23 09:59 e-Cigarette/Vaping Use Never Used 07/19/23 09:59 PHQ-9: PHQ-9 Score PHQ-9: Total score 0 07/19/23 09:59 Depression Screening Interpretation: Negative Thrive Assessment: Date of Thrive Assessment Date Thrive assessed 07/19/23 07/19/23 09:59 Currently or been in a relationship where the following occur: no concerns reported Const General: no acute distress and alert HENMT Ears: TM's normal bilaterally and EAC's normal General nose exam: Nasal polyp present on the right Throat: Yes posterior oropharynx normal and Yes tonsils normal Neck Neck: Yes no lymphadenopathy and Yes supple Resp Auscultation: clear to auscultation bilaterally, no rales and no wheezes Cardio Rate: regular rate Rhythm: regular rhythm Heart sounds: no murmurs GI Palpation (GI): Soft to palpation and nontender Auscultation: normal bowel sounds Back/Spine/Pelvis Thoracic/Lumbar Spine: lumbar spinal tenderness and straight leg raise positive right Skin Rashes: no rashes Extrem General: Yes no clubbing, cyanosis or edema Results Reviewed Results Reviewed: Laboratory Tests 07/16/23 07/16/23 09:56 Unknown WBC 7.9 Hgb 13.8 L Hct 40.6 L Plt Count 327 Sodium 138 Potassium 4.1 Creatinine 0.91 Estimated GFR > 60 Fasting Glucose 103 H Hemoglobin A1c % 5.8 Calcium 9.6 AST 59 H ALT 38 Triglycerides 123 Cholesterol 164 LDL Cholesterol, Calc 83 HDL Cholesterol 57 25-OH Vitamin D Total 27.1 L TSH 0.85 Urine pH 6.5 Ur Specific [place] <= 1.005 Urine Protein Negative Urine Glucose (UA) Negative Urine Blood Negative Urine Nitrite Negative Ur Leukocyte Esterase Negative Assessment and Plan Assessment & Plan (1) Diabetes mellitus: Code(s): E11.9 - Type 2 diabetes mellitus without complications Qualifiers: Diabetes mellitus type: type 2 Diabetes mellitus correction insulin use: without correction use Diabetes mellitus complication status: with hyperglycemia Qualified Code(s): E11.65 - Type 2 diabetes mellitus with hyperglycemia Plan: HgbA1c remains unchanged at 5.8.% on his recent labs - goal is <6.5% Reinforced diabetic diet Continue Metformin 500 mg QD (2) Pure hypercholesterolemia: Code(s): E78.00 - Pure hypercholesterolemia, unspecified Plan: Results of his labs done a few days ago reviewed and discussed with patient Reinforced low cholesterol diet Continue Atorvastatin 20 mg QD Will recheck his labs and fasting lipids in 4 months for follow up (3) Benign essential hypertension: Code(s): I10 - Essential (primary) hypertension Plan: Reinforced low sodium diet - goal is systolic BP of 120 mm or less Continue Lisinopril-HCT 20-25 mg QD (4) Elevated LFTs: Code(s): R79.89 - Other specified abnormal findings of blood chemistry Plan: Advised that his AST is still slightly elevated on his recent labs; ALT is normal Patient had an abdominal US done back in January 2022 that came out normal Patient cautioned again about taking too much Tylenol/Acetaminophen and also reminded to abstain from alcohol completely Will continue to monitor his LFTs regularly (5) Vitamin D deficiency: Code(s): E55.9 - Vitamin D deficiency, unspecified Plan: Improving slowly - continue Vitamin D2 18743 units once a week (6) Spinal stenosis of lumbar region with radiculopathy: Comment: Lumbar spine MRI done on 06/16/2012 showed (+) spondylitic and degenerative disc changes of the lumbar spine superimposed upon a congenitally narrowed spinal canal, with foraminal narrowing most prominent at L5-S1. No discrete nerve root impingement was seen at this time Code(s): M48.061 - Spinal stenosis, lumbar region without neurogenic claudication; M54.16 - Radiculopathy, lumbar region Plan: Reinforced activity and weight-lifting restrictions Continue Tramadol 50 mg TID PRN for increased pain Has been seen by neurosurgery and was referred to physical therapy - has been to PT about 3 times and states that physical therapy has helped somewhat but only temporarily Has also received back injection from Dr. Kaba back on 01/30/2021, which he states helped somewhat but another injection in November 2022 only provided him with some relief for a week Due to his recently increasing low back pain and right lumbar radicular pain, is requesting to have a follow up MRI done - ordered (patient requests to have it done at [facility]) He is advised to continue following up with Dr. Kaba for management of his low back pain (7) Allergic rhinitis: Code(s): J30.9 - Allergic rhinitis, unspecified Qualifiers: Allergic rhinitis trigger: unspecified Allergic rhinitis seasonality: unspecified Qualified Code(s): J30.9 - Allergic rhinitis, unspecified Plan: Continue Fluticasone nasal spray QD PRN (8) Right nasal polyps: Code(s): J33.9 - Nasal polyp, unspecified Plan: Per request, will refer him back to ENT (has seen Dr. Jordan a couple of years ago) for further evaluation and management (9) Osteoarthritis of left shoulder: Code(s): M19.012 - Primary osteoarthritis, left shoulder Qualifiers: Osteoarthritis type: primary Qualified Code(s): M19.012 - Primary osteoarthritis, left shoulder Plan: X-rays of the left shoulder done a couple of years ago showed (+) mild to moderate arthritis changes Continue Celecoxib 200 mg QD PRN Patient is again encouraged to continue with regular shoulder exercises to help manage his shoulder symptoms more effectively (10) Overweight (BMI 25.0-29.9): Code(s): E66.3 - Overweight Plan: Reinforced diet/exercise as tolerated/lose weight Plan Follow up in 4 months Orders: Orders MR lumbar spine wo con Today M48.061 - Spinal stenosis, lumbar region without neurogenic claudication, M51.36 - Other intervertebral disc degeneration, lumbar region, M54.16 - Radiculopathy, lumbar region, R20.2 - Paresthesia of skin UA CC w/rflx Micro + Cult 4 Months R30.0 - Dysuria Microalbumin, Random (w Creat) 4 Months E11.9 - Type 2 diabetes mellitus without complications Hemoglobin A1c 4 Months E11.9 - Type 2 diabetes mellitus without complications Complete Blood Count Auto Diff 4 Months D64.9 - Anemia, unspecified Lipid Panel 4 Months E78.00 - Pure hypercholesterolemia, unspecified Comprehensive [place]. 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
== END 2023-07-19 10:31 | disposition home or self-care (01) ==
PROVIDERS: PCP Internal Medicine; Visit Provider Internal Medicine
DX: E11.65 Type 2 diabetes mellitus with hyperglycemia (principal); E78.00 Pure hypercholesterolemia, unspecified; I10 Essential (primary) hypertension; R79.89 Other specified abnormal findings of blood chemistry; E55.9 Vitamin D deficiency, unspecified; M48.061 Spinal stenosis, lumbar region without neurogenic claudication; M54.16 Radiculopathy, lumbar region; J30.9 Allergic rhinitis, unspecified; J33.9 Nasal polyp, unspecified; M19.012 Primary osteoarthritis, left shoulder; E66.3 Overweight
CPT/HCPCS: 99214

== ENCOUNTER 2023-11-15 08:11 | Outpatient (REF) | payer OTHER, SELFPAY ==
[2023-11-15 10:59] LABS: Appearance Urine Clear; Color Urine Yellow; Glucose Urine UA Negative (Negative); Leukocyte Esterase Urine Negative (Negative); MANUAL DIFF FLAG NO; Nitrite Urine Negative (Negative); PH 5.5 (5.0-9.0); Urine Blood Negative (Negative); Urine Ketones Negative (Negative); Urine Protein Negative (Neg-Trace)
[2023-11-15 11:09] LABS: Basophils Percent Auto 0.3 % (0-2); Eosinophils Absolute Auto 0.3 X10*3/uL (0.0-0.4); Eosinophils Percent Auto 4.6 % (0-4); Estimated Average Glucose 126 mg/dL; Hematocrit 36.9 % (42.0-52.0); Hemoglobin 12.5 g/dl (14.0-18.0); Imm Gran Abs Auto 0.02 X10*3/uL (0.00-0.03); Imm Gran Pct Auto 0.3 % (0.0-0.4); Lymphocytes Absolute Auto 2.1 X10*3/uL (1.2-4.9); Lymphocytes Percent Auto 35.6 % (20-40); Mean Corpuscular HGB Conc 33.9 g/dl (31.0-36.0); Mean Corpuscular Hemoglobin 29.6 pg (27.0-33.0); Mean Corpuscular Volume 87.2 fL (80.0-98.0); Monocytes Absolute Auto 0.4 X10*3/uL (0.1-1.2); Neutrophils Percent Auto 52.2 % (45-73); Platelet Count 306 X10*3/uL (160-400); Red Blood Count 4.23 X10*6/uL (4.60-5.80); Red Cell Distribution Width 12.6 % (11.0-16.0); White Blood Count 5.8 X10*3/uL (4.8-10.8)
[2023-11-15 11:13] LABS: Creatinine Urine 47.67 mg/dL; Microalbum/Creatinine Ratio Ur 18.8 ug/mg cr (<30)
[2023-11-15 11:33] LABS: Alanine Aminotransferase 32 U/L (0-40); Albumin Level 4.4 g/dL (3.5-5.0); Alkaline Phosphatase 56 U/L (39-117); Anion Gap 9 (12-20); Aspartate Amino Transferase 57 U/L (5-37); Bilirubin Total 0.8 mg/dL (0.0-1.0); Blood Urea Nitrogen 20 mg/dL (9-16); Calcium 10.1 mg/dL (8.4-10.2); Carbon Dioxide 31 mmol/L (22-29); Chloride 100 mmol/L (96-108); Cholesterol 130 mg/dL (<200); Estimated Glomerular Filt Rate > 60; Glucose Fasting 96 mg/dL (60-99); HDL Cholesterol 52 mg/dL (>40); LDL Cholesterol Calculated 66 mg/dL (<100); Potassium 4.1 mmol/L (3.3-5.1); Sodium 136 mmol/L (135-145); Triglycerides 63 mg/dL (<150)
[2023-11-15 11:55] LABS: TSH reflex Free T4 0.58 uIU/mL (0.32-4.0); Vitamin D 25-OH Total 42.1 ng/mL (>30)
== END 2023-11-15 08:12 | disposition home or self-care (01) ==
LOC: HO.10HDL 08:11
PROVIDERS: Visit Provider Internal Medicine
DX: R30.0 Dysuria (principal); D64.9 Anemia, unspecified; E11.9 Type 2 diabetes mellitus without complications; E78.00 Pure hypercholesterolemia, unspecified; E55.9 Vitamin D deficiency, unspecified
CPT/HCPCS: 36415; 80053; 80061; 81003; 82043; 82306; 82570; 83036; 84443; 85025

== ENCOUNTER 2023-11-22 09:33 | Outpatient (AMB) | payer OTHER, SELFPAY ==
[2023-11-22 09:38] VITALS: BP 142/86; PULSE 62; O2SAT 96; BMI 28.7
--- NOTE | 2023-11-22 09:38 | A.OFFPC_ITS ---
Vital Signs 11/22/23 09:38 Height 5 ft 11 in Weight 206 lb BMI 28.7 BP 142/86 H Blood Pressure Location Lt brachial Position Sitting Pulse 62 Pulse Source Pulse Oximeter Pulse Oximetry (%) 96 Oxygen Delivery Method Room Air Intake Visit Reasons: 4 month f/u Juice Mixer Required: No Accompanied by: Self / Same As Patient Allergies No Known Allergies Allergy (Verified 11/22/23 10:30) Medication List - Last Reconciled 11/22/23 by Ramo Thomas MD aspirin (Adult Low Dose Aspirin) 81 mg PO DAILY atorvastatin 20 mg PO DAILY celecoxib 200 mg PO DAILY PRN ergocalciferol (vitamin D2) (Vitamin D2) 1,250 mcg PO QWEEK fluticasone propionate 50 mcg/actuation 1 spray intranasal DAILY lisinopril-hydrochlorothiazide 20-25 mg 1 tab PO DAILY metformin 500 mg PO DAILY 30 days tizanidine 4 mg PO TID PRN 30 days tramadol 50 mg PO BID PRN Tobacco use date assessed: 07/19/23 Dental Screening Dental Screen Date: 07/19/23 HPI 4 month f/u HPI Details Patient comes in today for his follow up visit States that he feels okay He denies any headaches or dizziness Denies any chest pains, no SOB No nausea/vomiting, no abdominal pain No change in bowel habits noted He continues to experience recurrent low back pain with frequent radiation of pain down his right leg - states that he is unable to walk for more than a couple of blocks without having to stop and rest for a while due to increasing low back pain and right leg pain We requested for a repeat MRI of the lumbar spine for further evaluation at his last visit but this was DENIED by his insurance He also still has a recurrent rash over his inguinal areas that he states have been bothering him for a while now He used to see Dr. Garrison over at [facility] a few years ago but is requesting for a referral to see a different pouncing lathe operator Adds that he is now due for a repeat colonoscopy as the one he had done at [facility] was over 10 years ago - would like to have this done at [facility] again due to insurance restrictions He had his follow up labs done last week - to discuss his results [facility] Medical History (Updated 11/22/23 @ 10:56 by Ramo Thomas MD) Diabetes mellitus Paresthesia of right lower extremity Spinal stenosis of lumbar region with radiculopathy Overweight (BMI 25.0-29.9) Calcaneal spur, left Osteoarthritis of left shoulder Lumbar degenerative disc disease Allergic rhinitis Vitamin D deficiency Benign essential hypertension Pure hypercholesterolemia Surgical History No significant past surgical history Family History Father Hypertension Diabetes mellitus Social History Housing: House Alcohol intake: current Alcohol intake frequency: a few times a month Alcohol type: wine Patient Tobacco Use Status: Never used Tobacco e-Cigarette/Vaping Use: Never Used Second Hand Smoke Exposure: No service: No Current occupational status: employed 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 Dieudonne Marion, Nerissa Sweeney, Lalo Emmanuel and colleagues, with an educational mandeep from [employer]. Review of Systems Const Denies chills, Denies fatigue, Denies fever(s) and Denies headache(s) ENT Denies dysphagia, Denies dizziness, Denies otalgia, Denies headache(s), Denies neck pain, Denies odynophagia and Denies sore throat Card Denies chest pain, Denies palpitations and Denies dyspnea Resp Denies cough and Denies dyspnea GI Denies abdominal pain, Denies constipation, Denies dysphagia, Denies heartburn, Denies diarrhea, Denies nausea, Denies odynophagia and Denies vomiting Denies difficulty urinating, Denies dysuria, Denies nocturia and Denies urinary frequency Musc Reports back pain (recurrent - improved slightly with PT in the past but failed back injection), Denies neck pain, Reports radiating pain into limb (down into the right leg) and Reports tingling (into the right leg and foot, on and off) Skin/Breast Reports rash (recurrent over the inguinal areas bilaterally) Neuro Denies dizziness, Denies headache(s) and Reports tingling (into the right leg and foot, on and off) Endo Denies fatigue and Denies palpitations Physical exam (Primary Care) Vital Signs: Last Vital Signs Pulse 62 11/22/23 09:38 BP 142/86 H 11/22/23 09:38 Pulse Ox 96 11/22/23 09:38 Oxygen Delivery Method Room Air 11/22/23 09:38 BMI result Body Mass Index 28.7 Tobacco/Smoking Status: Tobacco use Status Tobacco use date assessed 07/19/23 11/22/23 09:40 Patient Tobacco Use Status Never used Tobacco 11/22/23 09:40 e-Cigarette/Vaping Use Never Used 11/22/23 09:40 Thrive Assessment: Date of Thrive Assessment Date Thrive assessed 07/19/23 11/22/23 09:40 Const General: no acute distress and alert HENMT Ears: TM's normal bilaterally and EAC's normal Throat: Yes posterior oropharynx normal and Yes tonsils normal Neck Neck: Yes no lymphadenopathy and Yes supple Resp Auscultation: clear to auscultation bilaterally, no rales and no wheezes Cardio Rate: regular rate Rhythm: regular rhythm Heart sounds: no murmurs GI Palpation (GI): Soft to palpation and nontender Auscultation: normal bowel sounds General: Yes no CVA tenderness Back/Spine/Pelvis Back: no CVA tenderness Thoracic/Lumbar Spine: lumbar spinal tenderness and straight leg raise positive (mild) right Skin Rashes: rashes noted bilateral groin Extrem General: Yes no clubbing, cyanosis or edema Results Reviewed Results Reviewed: Laboratory Tests 11/15/23 08:15 WBC 5.8 Hgb 12.5 L Hct 36.9 L Plt Count 306 Sodium 136 Potassium 4.1 Creatinine 0.94 Estimated GFR > 60 Fasting Glucose 96 Hemoglobin A1c % 6.0 Calcium 10.1 AST 57 H ALT 32 Triglycerides 63 Cholesterol 130 LDL Cholesterol, Calc 66 HDL Cholesterol 52 25-OH Vitamin D Total 42.1 TSH 0.58 Ur Specific [place] 1.010 Urine Protein Negative Urine Glucose (UA) Negative Urine Blood Negative Urine Nitrite Negative Ur Leukocyte Esterase Negative Microalb/Creat Ratio 18.8 Assessment and Plan Assessment & Plan (1) Pure hypercholesterolemia: Code(s): E78.00 - Pure hypercholesterolemia, unspecified Plan: Results of his labs done last week reviewed and discussed with patient Reinforced low cholesterol diet Continue Atorvastatin 20 mg QD Will recheck his labs and fasting lipids in 4 months for follow up (2) Diabetes mellitus: Code(s): E11.9 - Type 2 diabetes mellitus without complications Qualifiers: Diabetes mellitus type: type 2 Diabetes mellitus usp insulin use: without superintendent [employer] use Diabetes mellitus complication status: with hyperglycemia Qualified Code(s): E11.65 - Type 2 diabetes mellitus with hyperglycemia Plan: His HgbA1c was at 6.0% on his labs done last week (was at 5.8.% a few months ago ) - goal is ideally <6.5% Reinforced diabetic diet Continue Metformin 500 mg QD (3) Benign essential hypertension: Code(s): I10 - Essential (primary) hypertension Plan: Reinforced low sodium diet - goal is systolic BP of 120 mm or less Continue Lisinopril-HCT 20-25 mg QD (4) Elevated LFTs: Code(s): R79.89 - Other specified abnormal findings of blood chemistry Plan: Advised that his AST is still slightly elevated on his recent labs; ALT is normal Patient had an abdominal US done back in January 2022 that came out normal Patient cautioned again about taking too much Tylenol/Acetaminophen and also reminded to abstain from alcohol completely Will continue to monitor his LFTs regularly (5) Vitamin D deficiency: Code(s): E55.9 - Vitamin D deficiency, unspecified Plan: Continue Vitamin D2 33912 units once a week (6) Spinal stenosis of lumbar region with radiculopathy: Comment: Lumbar spine MRI done on 06/16/2012 showed (+) spondylitic and degenerative disc changes of the lumbar spine superimposed upon a congenitally narrowed spinal canal, with foraminal narrowing most prominent at L5-S1. No discrete nerve root impingement was seen at this time Code(s): M48.061 - Spinal stenosis, lumbar region without neurogenic claudication; M54.16 - Radiculopathy, lumbar region Plan: Reinforced activity and weight-lifting restrictions Continue Tramadol 50 mg TID PRN for increased pain Has been seen by neurosurgery in the past and was referred to physical therapy - has been to PT about 3 times and states that physical therapy has helped somewhat but only temporarily e h also received back injection from Dr. Sesar avalos on 01/30/2021, which he states helped somewhat but another injection in November 2022 only provided him with some relief for a week He is advised to continue following up with Dr. Kaba for management of his low back pain Due to his recently increasing low back pain and right lumbar radicular pain, we requested a repeat lumbar spine MRI for further evaluation a few months ago but this was denied by insurance States that neurosurgery at [facility] will NOT schedule him for an appointment unless he has an updated MRI done but as his insurance is denying the study, he wants to know what he needs to do next Will try to refer him ti the spine center here at [facility] for further evaluation and discussed that if they feel he needs an updated MRI, they may be able to help him get this approved but we will have to see what they say first (7) Osteoarthritis of left shoulder: Code(s): M19.012 - Primary osteoarthritis, left shoulder Qualifiers: Osteoarthritis type: primary Qualified Code(s): M19.012 - Primary osteoarthritis, left shoulder Plan: X-rays of the left shoulder done a couple of years ago showed (+) mild to moderate arthritis changes Continue Celecoxib 200 mg QD PRN Patient is again encouraged to continue with regular shoulder exercises to help manage his shoulder symptoms more effectively (8) Allergic rhinitis: Code(s): J30.9 - Allergic rhinitis, unspecified Qualifiers: Allergic rhinitis trigger: unspecified Allergic rhinitis seasonality: unspecified Qualified Code(s): J30.9 - Allergic rhinitis, unspecified Plan: Continue Fluticasone nasal spray QD PRN (9) Groin rash: Code(s): R21 - Rash and other nonspecific skin eruption Plan: Patient was seen for this by Dr. Garrison of [facility] several years ago but he is requesting for a referral to a different pouncing lathe operator Will refer him instead to Dr. Gomez for further evaluation and management (10) Overweight (BMI 25.0-29.9): Code(s): E66.3 - Overweight Plan: Reinforced diet/exercise as tolerated/lose weight (11) Colon cancer screening: Code(s): Z12.11 - Encounter for screening for malignant neoplasm of colon Plan: States that he last had his screening colonoscopy done > 10 years ago and is now due for repeat - per request, will refer him to [facility] GI for repeat colonoscopy Plan Follow up in 4 months Orders: Orders Comprehensive [place]. Panel Fast 4 Months E78.00 - Pure hypercholesterolemia, unspecified UA CC w/rflx Micro + Cult 4 Months R30.0 - Dysuria Complete Blood Count Auto Diff 4 Months D64.9 - Anemia, unspecified Microalbumin, Random (w Creat) 4 Months E11.9 - Type 2 diabetes mellitus without complications Lipid Panel 4 Months E78.00 - Pure hypercholesterolemia, unspecified Hemoglobin A1c 4 Months E11.9 - Type 2 diabetes mellitus without complications TSH reflex Free T4 4 Months E78.00 - Pure hypercholesterolemia, unspecified Vitamin D 25-OH Total 4 Months E55.9 - Vitamin D deficiency, unspecified Referrals Neurosurgery Referral M48.061 - Spinal stenosis, lumbar region without neurogenic claudication, M51.36 - Other intervertebral disc degeneration, lumbar region, M54.16 - Radiculopathy, lumbar region, R20.2 - Paresthesia of skin Dermatology Referral R21 - Rash and other nonspecific skin eruption Gastroenterology Referral Z12.11 - Encounter for screening for malignant neoplasm of colon Coding Level of Care Code Est Pt Level 4 (60072) Complex EM visit Add On G2211 Diagnoses Pure hypercholesterolemia E78.00 Type 2 diabetes mellitus with hyperglycemia, without long-term current use of insulin E11.65 Diabetes mellitus type: type 2 Diabetes mellitus [employer] insulin use: without superintendent [employer] use Diabetes mellitus complication status: with hyperglycemia Benign essential hypertension I10 Elevated LFTs R79.89 Vitamin D deficiency E55.9 Spinal stenosis of lumbar region with radiculopathy M48.061; M54.16 Primary osteoarthritis of left shoulder M19.012 Osteoarthritis type: primary Allergic rhinitis, unspecified seasonality, unspecified trigger J30.9 Allergic rhinitis trigger: unspecified Allergic rhinitis seasonality: unspecified Groin rash R21 Overweight (BMI 25.0-29.9) E66.3 Colon cancer screening Z12.11
== END 2023-11-22 10:45 | disposition home or self-care (01) ==
PROVIDERS: PCP Internal Medicine; Visit Provider Internal Medicine
DX: E78.00 Pure hypercholesterolemia, unspecified (principal); E11.65 Type 2 diabetes mellitus with hyperglycemia; I10 Essential (primary) hypertension; R79.89 Other specified abnormal findings of blood chemistry; E55.9 Vitamin D deficiency, unspecified; M48.061 Spinal stenosis, lumbar region without neurogenic claudication; M54.16 Radiculopathy, lumbar region; M19.012 Primary osteoarthritis, left shoulder; J30.9 Allergic rhinitis, unspecified; R21 Rash and other nonspecific skin eruption; E66.3 Overweight; Z12.11 Encounter for screening for malignant neoplasm of colon
CPT/HCPCS: 99214; G2211

== ENCOUNTER 2024-03-20 09:07 | Outpatient (REF) | payer OTHER, SELFPAY ==
[2024-03-20 10:43] LABS: MANUAL DIFF FLAG NO
[2024-03-20 10:46] LABS: Basophils Percent Auto 0.4 % (0-2); Eosinophils Absolute Auto 0.3 X10*3/uL (0.0-0.4); Eosinophils Percent Auto 4.6 % (0-4); Hematocrit 38.6 % (42.0-52.0); Hemoglobin 13.1 g/dl (14.0-18.0); Imm Gran Abs Auto 0.02 X10*3/uL (0.00-0.03); Imm Gran Pct Auto 0.3 % (0.0-0.4); Lymphocytes Absolute Auto 2.4 X10*3/uL (1.2-4.9); Lymphocytes Percent Auto 34.9 % (20-40); Mean Corpuscular HGB Conc 33.9 g/dl (31.0-36.0); Mean Corpuscular Hemoglobin 29.4 pg (27.0-33.0); Mean Corpuscular Volume 86.5 fL (80.0-98.0); Mean Platelet Volume 8.9 fL (9.4-12.4); Monocytes Absolute Auto 0.6 X10*3/uL (0.1-1.2); Monocytes Percent Auto 8.3 % (2-11); Neutrophils Absolute Auto 3.5 x10*3/uL (2.0-8.3); Neutrophils Percent Auto 51.5 % (45-73); Platelet Count 357 X10*3/uL (160-400); Red Blood Count 4.46 X10*6/uL (4.60-5.80); Red Cell Distribution Width 12.6 % (11.0-16.0); White Blood Count 6.8 X10*3/uL (4.8-10.8)
[2024-03-20 10:48] LABS: Appearance Urine Clear; Color Urine Yellow; Glucose Urine UA Negative (Negative); Leukocyte Esterase Urine Negative (Negative); Nitrite Urine Negative (Negative); PH 5.5 (5.0-9.0); Urine Blood Negative (Negative); Urine Ketones Negative (Negative); Urine Protein Negative (Neg-Trace)
[2024-03-20 11:00] LABS: Estimated Average Glucose 128 mg/dL; Hemoglobin A1C 138.2702 umol/L; Hemoglobin A1c % 6.1 % (<6.0); Total Hemoglobin (HGBA1C) 3173.3687 umol/L
[2024-03-20 11:11] LABS: Alanine Aminotransferase 29 U/L (0-40); Albumin Level 4.5 g/dL (3.5-5.0); Alkaline Phosphatase 60 U/L (39-117); Anion Gap 12 (12-20); Aspartate Amino Transferase 46 U/L (5-37); Bilirubin Total 0.9 mg/dL (0.0-1.0); Blood Urea Nitrogen 22 mg/dL (9-16); Calcium 9.7 mg/dL (8.4-10.2); Carbon Dioxide 32 mmol/L (22-29); Chloride 98 mmol/L (96-108); Cholesterol 242 mg/dL (<200); Estimated Glomerular Filt Rate > 60; Glucose Fasting 104 mg/dL (60-99); HDL Cholesterol 52 mg/dL (>40); LDL Cholesterol Calculated 154 mg/dL (<100); Potassium 4.5 mmol/L (3.3-5.1); Sodium 137 mmol/L (135-145); Total Protein 7.4 g/dL (6.5-8.0); Triglycerides 180 mg/dL (<150)
[2024-03-20 11:29] LABS: Vitamin D 25-OH Total 46.3 ng/mL (>30)
[2024-03-20 12:01] LABS: Creatinine Urine 61.76 mg/dL; Microalbumin Urine < 5.0 mg/L
== END 2024-03-20 09:08 | disposition home or self-care (01) ==
LOC: HO.10HDL 09:07
PROVIDERS: Visit Provider Internal Medicine
DX: E11.9 Type 2 diabetes mellitus without complications (principal); E78.00 Pure hypercholesterolemia, unspecified; E55.9 Vitamin D deficiency, unspecified; R30.0 Dysuria; D64.9 Anemia, unspecified
CPT/HCPCS: 36415; 80053; 80061; 81003; 82043; 82306; 82570; 83036; 84443; 85025

== ENCOUNTER 2024-03-27 09:23 | Outpatient (AMB) | payer OTHER, SELFPAY ==
[2024-03-27 09:29] VITALS: BP 102/64; PULSE 59; O2SAT 97; BMI 28.5
--- NOTE | 2024-03-27 09:29 | A.OFFPC_ITS ---
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 Required: No Accompanied by: Self / Same As Patient Allergies No Known Allergies Allergy (Verified 03/27/24 09:46) Medication List - Last Reconciled 03/27/24 by Ramo Thomas MD aspirin (Adult Low Dose Aspirin) 81 mg PO DAILY atorvastatin 20 mg PO DAILY celecoxib 200 mg PO DAILY PRN ergocalciferol (vitamin D2) (Vitamin D2) 1,250 mcg PO QWEEK fluticasone propionate 50 mcg/actuation 1 spray intranasal DAILY lisinopril-hydrochlorothiazide 20-25 mg 1 tab PO DAILY metformin 500 mg PO DAILY 30 days tizanidine 4 mg PO TID PRN 30 days tramadol 50 mg PO BID PRN Tobacco use date assessed: 03/27/24 Dental Screening Dental Screen Date: 03/27/24 Did you have a dental visit in the last 12 months?: Yes Did you have a dental problem in the last 6 months where you did not have access to dental care?: No Was dental information given to patient?: Patient has dentist HPI [facility] f/u HPI Details Patient comes in today for his follow up visit States that he currently feels okay Relates that he had to stop taking his Atorvastatin for about 10 days as he tested positive for COVID about 2 to 3 weeks ago and was taking Paxlovid States that he has gone back on his cholesterol Rx last week and that all of his COVID symptoms have cleared up completely He denies any headaches or dizziness Denies any chest pains, no SOB No nausea/vomiting, no abdominal pain No change in bowel habits noted He continues to experience recurrent low back pain with frequent radiation of pain down his right leg - states that he is unable to walk for more than a couple of blocks without having to stop and rest for a while due to increasing low back pain and right leg pain We requested for a repeat MRI of the lumbar spine for further evaluation at his last visit but this was DENIED by his insurance We then referred him to the spine center here at [facility] at his last visit but he states that he has never received any call from them to schedule him for an appointment yet He needs his Metformin Rx refilled today He had his follow up labs done last week - to discuss his results [facility] Medical History Diabetes mellitus Paresthesia of right lower extremity Spinal stenosis of lumbar region with radiculopathy Overweight (BMI 25.0-29.9) Calcaneal spur, left Osteoarthritis of left shoulder Lumbar degenerative disc disease Allergic rhinitis Vitamin D deficiency Benign essential hypertension Pure hypercholesterolemia Surgical History No significant past surgical history Family History Father Hypertension Diabetes mellitus Social History Housing: House Alcohol intake: current Alcohol intake frequency: a few times a month Alcohol type: wine Patient Tobacco Use Status: Never used Tobacco e-Cigarette/Vaping Use: Never Used Second Hand Smoke Exposure: No service: No Current occupational status: employed 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 1. Little interest or pleasure in doing things: not at all 2. Feeling down, depressed, or hopeless: not at all 3. Trouble falling or staying asleep, or sleeping too much: not at all 4. Feeling tired or having little energy: not at all 5. Poor appetite or overeating: not at all 6. Feeling bad about yourself - or that you are a failure or have let yourself or your family down: not at all 7. Trouble concentrating on things, such as reading the newspaper or watching television: not at all 8. Moving or speaking so slowly that other people could have noticed. Or the opposite - being so fidgety or restless that you have been moving around a lot more than usual: not at all 9. Thoughts that you would be better off or of hurting yourself in some way: not at all Total score: 0 Depression Screening Interpretation: Negative Depression Screening Done: Yes 39000 - PHQ-9 Billing: Yes Source: Developed by Drs. Dieudonne Marion, Nerissa Sweeney, Lalo Emmanuel and colleagues, with an educational mandeep from [employer]. Thrive Questionnaire Date Thrive assessed: 03/27/24 I am a: Patient What is your living situation today?: I have a steady place to live Within the past 12 months, did the food you bought not last and you didn't have the money to get more?: Never true Within the past 12 months, did you worry whether your food would run out before you got money to buy more?: Never true Do you have trouble paying for medicines?: No Do you have trouble getting transportation to medical appointments?: No Do you have trouble paying your heating and electricity bill?: No Do you have trouble taking care of your child, family member or friend?: No Do you have trouble with day-to-day activities such as bathing, preparing meals, shopping, managing finances, etc.?: No Are you currently unemployed and looking for a job?: No Are you interested in more education?: No Please select the resources that you would like help with: None Currently or been in a relationship where the following occur: No concerns reported THRIVE Score: 0 AUDIT C Alcohol Use Questionnaire (AUDIT-C) 1. How often do you have a drink containing alcohol?: 2-4 times a month 2. How many drinks containing alcohol do you have on a typical day when you are drinking?: 1 or 2 3. How often do you have six or more drinks on one occasion?: Never Total Score: 2 Score Reviewed/Action Taken: Yes AMIRA-7 AMB Questionnaire AMIRA-7 Date AMIRA - 7 assessed: 03/27/24 Feeling nervous, anxious, or on edge: 0 = Not at all Not being able to stop or control worryin = Not at all Worrying too much about different things: 0 = Not at all Trouble relaxin = Not at all Being so restless that it is hard to sit still: 0 = Not at all Becoming easily annoyed or irritable: 0 = Not at all Feeling afraid as if something awful might happen: 0 = Not at all Total AMIRA-7 score (0-4 normal; 5-9 mild; 10-14 moderate; 15-21 severe): 0 Source: Developed by Yaniv Navarreteet B.W. Patel, Lalo Emmanuel and colleagues, with an educational mandeep from [employer]. Review of Systems Const Denies chills, Denies fatigue, Denies fever(s) and Denies headache(s) ENT Denies dysphagia, Denies dizziness, Denies otalgia, Denies headache(s), Denies neck pain, Denies odynophagia and Denies sore throat Card Denies chest pain, Denies palpitations and Denies dyspnea Resp Denies cough and Denies dyspnea GI Denies abdominal pain, Denies constipation, Denies dysphagia, Denies heartburn, Denies diarrhea, Denies nausea, Denies odynophagia and Denies vomiting Denies difficulty urinating, Denies dysuria, Denies nocturia and Denies urinary frequency Musc Reports back pain (recurrent - improved slightly with PT in the past but failed back injection), Denies neck pain, Reports radiating pain into limb (down into the right leg) and Reports tingling (into the right leg and foot, on and off) Skin/Breast Denies rash Neuro Denies dizziness, Denies headache(s) and Reports tingling (into the right leg and foot, on and off) Endo Denies fatigue and Denies palpitations Physical exam (Primary Care) Vital Signs: Last Vital Signs Pulse 59 03/27/24 09:29 BP 102/64 03/27/24 09:29 Pulse Ox 97 03/27/24 09:29 Oxygen Delivery Method Room Air 03/27/24 09:29 BMI result Body Mass Index 28.5 Tobacco/Smoking Status: Tobacco use Status Tobacco use date assessed 03/27/24 03/27/24 09:32 Patient Tobacco Use Status Never used Tobacco 03/27/24 09:32 e-Cigarette/Vaping Use Never Used 03/27/24 09:32 PHQ-9: PHQ-9 Score PHQ-9: Total score 0 03/27/24 09:35 Depression Screening Interpretation: Negative Thrive Assessment: Date of Thrive Assessment Date Thrive assessed 03/27/24 03/27/24 09:32 Currently or been in a relationship where the following occur: No concerns reported Const General: no acute distress and alert HENMT Ears: TM's normal bilaterally and EAC's normal Throat: Yes posterior oropharynx normal and Yes tonsils normal Neck Neck: Yes no lymphadenopathy and Yes supple Resp Auscultation: clear to auscultation bilaterally, no rales and no wheezes Cardio Rate: regular rate Rhythm: regular rhythm Heart sounds: no murmurs GI Palpation (GI): Soft to palpation and nontender Auscultation: normal bowel sounds General: Yes no CVA tenderness Back/Spine/Pelvis Back: no CVA tenderness Thoracic/Lumbar Spine: lumbar spinal tenderness and straight leg raise positive (mild) Extrem General: Yes no clubbing, cyanosis or edema Office Procedures Flu Questionnaire Does the patient have a severe egg allergy?: No Immunizations Fluarix Triv 2734-2049 (PF) 45 mcg (15 mcg x 3)/0.5 mL IM syringe Performing Provider: Ramo Thomas MD [facility] Documented (not given) by: KAYDEN Greenberg on 03/27/24 09:35 Reason Not Given: Received Previously Results Reviewed Results Reviewed: Laboratory Tests 03/20/24 09:12 WBC 6.8 Hgb 13.1 L Hct 38.6 L Plt Count 357 Sodium 137 Potassium 4.5 Creatinine 0.87 Estimated GFR > 60 Fasting Glucose 104 H Hemoglobin A1c % 6.1 H Calcium 9.7 AST 46 H ALT 29 Triglycerides 180 H Cholesterol 242 H LDL Cholesterol, Calc 154 H HDL Cholesterol 52 25-OH Vitamin D Total 46.3 TSH 0.80 Ur Specific [place] 1.010 Urine Protein Negative Urine Glucose (UA) Negative Urine Blood Negative Urine Nitrite Negative Ur Leukocyte Esterase Negative Microalb/Creat Ratio TNP Coding Level of Care Code Est Pt Level 4 (78556) Complex EM visit Add On G2211 Diagnoses Pure hypercholesterolemia E78.00 Benign essential hypertension I10 Type 2 diabetes mellitus with hyperglycemia, without long-term current use of insulin E11.65 Diabetes mellitus type: type 2 Diabetes mellitus 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 insulin use: without auger 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 use Diabetes mellitus complication status: with hyperglycemia Vitamin D deficiency E55.9 Elevated LFTs R79.89 Spinal stenosis of lumbar region with radiculopathy M48.061; M54.16 Primary osteoarthritis of left shoulder M19.012 Osteoarthritis type: primary Allergic rhinitis, unspecified seasonality, unspecified trigger J30.9 Allergic rhinitis trigger: unspecified Allergic rhinitis seasonality: unspecified Overweight (BMI 25.0-29.9) E66.3 Assessment & Plan Assessment & Plan (1) Pure hypercholesterolemia: Code(s): E78.00 - Pure hypercholesterolemia, unspecified Category: Medical Plan: Results of his labs done last week reviewed and discussed with patient - his cholesterol numbers have all increased significantly as he had to stop taking his Atorvastatin for about 10 days while he was on Paxlovid for COVID States that he has gone back on his Atorvastatin about a week ago now Reinforced low cholesterol diet Continue Atorvastatin 20 mg QD Will recheck his labs and fasting lipids in 4 months for follow up (2) Benign essential hypertension: Code(s): I10 - Essential (primary) hypertension Category: Medical Plan: Reinforced low sodium diet - goal is systolic BP of 120 mm or less Continue Lisinopril-HCT 20-25 mg QD (3) Diabetes mellitus: Code(s): E11.9 - Type 2 diabetes mellitus without complications Category: Medical Qualifiers: Diabetes mellitus type: type 2 Diabetes mellitus snf insulin use: without auger 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 use Diabetes mellitus complication status: with hyperglycemia Qualified Code(s): E11.65 - Type 2 diabetes mellitus with hyperglycemia Plan: His HgbA1c was at 6.1% on his labs done last week (was at 6.0.% a few months ago) - goal is ideally <6.5% Reinforced diabetic diet Continue Metformin 500 mg QD Will also refer him to ophthalmology for an annual diabetic eye exam (4) Vitamin D deficiency: Code(s): E55.9 - Vitamin D deficiency, unspecified Category: Medical Plan: Continue Vitamin D2 11077 units once a week (5) Elevated LFTs: Code(s): R79.89 - Other specified abnormal findings of blood chemistry Category: Medical Plan: He is advised that his AST is still slightly elevated on his recent labs; ALT remains normal Patient had an abdominal US done back in January 2022 that came out normal He is again cautioned against taking too many Tylenol/Acetaminophen and is also reminded to abstain from alcohol completely Will continue to monitor his LFTs regularly (6) Spinal stenosis of lumbar region with radiculopathy: Comment: Lumbar spine MRI done on 06/16/2012 showed (+) spondylitic and degenerative disc changes of the lumbar spine superimposed upon a congenitally narrowed spinal canal, with foraminal narrowing most prominent at L5-S1. No discrete nerve root impingement was seen at this time Code(s): M48.061 - Spinal stenosis, lumbar region without neurogenic claudication; M54.16 - Radiculopathy, lumbar region Category: Medical Plan: Reinforced activity and weight-lifting restrictions Continue Tramadol 50 mg TID PRN for increased pain He has been seen by neurosurgery in the past and was referred to physical therapy - he has been to PT about 3 times and states that physical therapy has helped somewhat but only temporarily He has also received back injections from Dr. Kaba back on 01/30/2021, which he states helped somewhat but another injection in November 2022 only provided him with some relief for a week He has been advised to continue following up with Dr. Kaba for management of his low back pain Due to his recently increasing low back pain and right lumbar radicular pain, we requested a repeat lumbar spine MRI for further evaluation a few months ago but this was denied by insurance States that neurosurgery at [facility] will NOT schedule him for an appointment unless he has an updated MRI done but as his insurance is denying the study, he wants to know what he needs to do next We tried referring him to the spine center here at [facility] for further evaluation but patient states that he has not heard back from them at all - will have office staff look into the referral again (7) Osteoarthritis of left shoulder: Code(s): M19.012 - Primary osteoarthritis, left shoulder Category: Medical Qualifiers: Osteoarthritis type: primary Qualified Code(s): M19.012 - Primary osteoarthritis, left shoulder Plan: X-rays of the left shoulder done a couple of years ago showed (+) mild to moderate arthritis changes Continue Celecoxib 200 mg QD PRN Patient is again encouraged to continue with regular shoulder exercises to help manage his shoulder symptoms more effectively (8) Allergic rhinitis: Code(s): J30.9 - Allergic rhinitis, unspecified Category: Medical Qualifiers: Allergic rhinitis trigger: unspecified Allergic rhinitis seasonality: unspecified Qualified Code(s): J30.9 - Allergic rhinitis, unspecified Plan: Continue Fluticasone 50 mcg nasal spray QD PRN (9) Overweight (BMI 25.0-29.9): Code(s): E66.3 - Overweight Category: Medical Plan: Reinforced diet/exercise as tolerated/lose weight Plan Follow up in 4 months Orders: Orders Hemoglobin A1c 4 Months E11.9 - Type 2 diabetes mellitus without complications Lipid Panel 4 Months E78.00 - Pure hypercholesterolemia, unspecified Vitamin D 25-OH Total 4 Months E55.9 - Vitamin D deficiency, unspecified Influenza [id number] Immunization Today Z23 - Encounter for immunization Complete Blood Count Auto Diff 4 Months D64.9 - Anemia, unspecified Comprehensive Shepherd. Panel Fast 4 Months E78.00 - Pure hypercholesterolemia, unspecified Microalbumin, Random (w Creat) 4 Months E11.9 - Type 2 diabetes mellitus without complications TSH reflex Free T4 4 Months E78.00 - Pure hypercholesterolemia, unspecified UA CC w/rflx Micro + Cult 4 Months R30.0 - Dysuria Referrals Ophthalmology Referral E11.65 - Type 2 diabetes mellitus with hyperglycemia
== END 2024-03-27 10:13 | disposition home or self-care (01) ==
PROVIDERS: PCP Internal Medicine; Visit Provider Internal Medicine
DX: E78.00 Pure hypercholesterolemia, unspecified (principal); I10 Essential (primary) hypertension; E11.65 Type 2 diabetes mellitus with hyperglycemia; E55.9 Vitamin D deficiency, unspecified; R79.89 Other specified abnormal findings of blood chemistry; M48.061 Spinal stenosis, lumbar region without neurogenic claudication; M54.16 Radiculopathy, lumbar region; M19.012 Primary osteoarthritis, left shoulder; J30.9 Allergic rhinitis, unspecified; E66.3 Overweight; Z23 Encounter for immunization

== ENCOUNTER → 2024-03-27 09:23 | Outpatient (BNVA) | payer OTHER, SELFPAY | PROVIDERS: PCP Internal Medicine; Visit Provider Internal Medicine | DX: E78.00 Pure hypercholesterolemia, unspecified (principal); I10 Essential (primary) hypertension; E11.65 Type 2 diabetes mellitus with hyperglycemia; E55.9 Vitamin D deficiency, unspecified; R79.89 Other specified abnormal findings of blood chemistry; M48.061 Spinal stenosis, lumbar region without neurogenic claudication; M19.012 Primary osteoarthritis, left shoulder; J30.9 Allergic rhinitis, unspecified; E66.3 Overweight; Z79.84 Long term (current) use of oral hypoglycemic drugs; Z79.899 Other long term (current) drug therapy | CPT/HCPCS: 90471; 96127 ==

== ENCOUNTER 2024-07-27 10:16 | Outpatient (REF) | payer OTHER, SELFPAY ==
[2024-07-27 10:33] LABS: MANUAL DIFF FLAG NO
[2024-07-27 11:33] LABS: Basophils Percent Auto 0.6 % (0-2); Eosinophils Absolute Auto 0.3 X10*3/uL (0.0-0.4); Eosinophils Percent Auto 5.3 % (0-4); Hematocrit 39.5 % (42.0-52.0); Hemoglobin 13.4 g/dl (14.0-18.0); Imm Gran Abs Auto 0.01 X10*3/uL (0.00-0.03); Imm Gran Pct Auto 0.2 % (0.0-0.4); Lymphocytes Percent Auto 37.7 % (20-40); Mean Corpuscular HGB Conc 33.9 g/dl (31.0-36.0); Mean Corpuscular Hemoglobin 29.8 pg (27.0-33.0); Mean Corpuscular Volume 87.8 fL (80.0-98.0); Mean Platelet Volume 8.9 fL (9.4-12.4); Monocytes Absolute Auto 0.5 X10*3/uL (0.1-1.2); Monocytes Percent Auto 9.5 % (2-11); Neutrophils Absolute Auto 2.5 x10*3/uL (2.0-8.3); Neutrophils Percent Auto 46.7 % (45-73); Platelet Count 333 X10*3/uL (160-400); Red Cell Distribution Width 13.1 % (11.0-16.0); White Blood Count 5.3 X10*3/uL (4.8-10.8)
[2024-07-27 11:40] LABS: Appearance Urine Clear; Color Urine Yellow; Glucose Urine UA Negative (Negative); Leukocyte Esterase Urine Negative (Negative); Nitrite Urine Negative (Negative); Specific Gravity - Urine 1.015 (1.005-1.025); Urine Blood Negative (Negative); Urine Ketones Negative (Negative); Urine Protein Negative (Neg-Trace)
[2024-07-27 11:48] LABS: Estimated Average Glucose 134 mg/dL; Hemoglobin A1C 159.0149 umol/L; Hemoglobin A1c % 6.3 % (<6.0); Total Hemoglobin (HGBA1C) 3523.6361 umol/L
[2024-07-27 12:07] LABS: Creatinine Urine 74.64 mg/dL; Microalbum/Creatinine Ratio Ur 6.6 ug/mg cr (<30)
[2024-07-27 12:08] LABS: Alanine Aminotransferase 45 U/L (0-40); Albumin Level 4.3 g/dL (3.5-5.0); Alkaline Phosphatase 62 U/L (39-117); Anion Gap 13 (12-20); Aspartate Amino Transferase 54 U/L (5-37); Bilirubin Total 1.1 mg/dL (0.0-1.0); Blood Urea Nitrogen 18 mg/dL (9-16); Calcium 9.2 mg/dL (8.4-10.2); Carbon Dioxide 26 mmol/L (22-29); Chloride 102 mmol/L (96-108); Cholesterol 151 mg/dL (<200); Estimated Glomerular Filt Rate > 60; Glucose Fasting 119 mg/dL (60-99); HDL Cholesterol 52 mg/dL (>40); LDL Cholesterol Calculated 77 mg/dL (<100); Potassium 3.8 mmol/L (3.3-5.1); Sodium 137 mmol/L (135-145); Total Protein 7.2 g/dL (6.5-8.0); Triglycerides 113 mg/dL (<150)
[2024-07-27 12:24] LABS: TSH reflex Free T4 0.43 uIU/mL (0.32-4.0); Vitamin D 25-OH Total 32.1 ng/mL (>30)
== END 2024-07-27 10:17 | disposition home or self-care (01) ==
LOC: HO.LAB 10:16
PROVIDERS: PCP Internal Medicine; Visit Provider Internal Medicine
DX: E11.9 Type 2 diabetes mellitus without complications (principal); E78.00 Pure hypercholesterolemia, unspecified; E55.9 Vitamin D deficiency, unspecified; D64.9 Anemia, unspecified; R30.0 Dysuria
CPT/HCPCS: 36415; 80053; 80061; 81003; 82043; 82306; 82570; 83036; 84443; 85025

== ENCOUNTER 2024-07-31 09:37 | Outpatient (AMB) | payer OTHER, SELFPAY ==
--- NOTE | 2024-07-31 09:49 | MHC.PC.OV ---
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 Accompanied by: Self / Same As Patient Allergies No Known Allergies Allergy (Verified 07/31/24 10:24) Medication List - Last Reconciled 07/31/24 by Ramo Thomas MD aspirin (Adult Low Dose Aspirin) 81 mg PO DAILY atorvastatin 20 mg PO DAILY celecoxib 200 mg PO DAILY PRN ergocalciferol (vitamin D2) (Vitamin D2) 1,250 mcg PO QWEEK fluticasone propionate 50 mcg/actuation 1 spray intranasal DAILY lisinopril-hydrochlorothiazide 20-25 mg 1 tab PO DAILY metformin 500 mg PO DAILY 30 days tizanidine 4 mg PO TID PRN 30 days tramadol 50 mg PO BID PRN Tobacco use date assessed: 07/31/24 Dental Screening Dental Screen Date: 07/31/24 Did you have a dental visit in the last 12 months?: Yes Did you have a dental problem in the last 6 months where you did not have access to dental care?: No Was dental information given to patient?: Patient has dentist HPI hyperlipidemia, DM, HTN, GERD HPI Details Patient comes in today for his follow-up visit States that he feels okay Relates that he just got back from vacation and is aware that he has gained a lot of weight since his last visit States that he also expects his cholesterol numbers to be higher currently as he admits to poor compliance with his diet while he was on vacation He denies any headaches or dizziness Denies any chest pains, no shortness of breath No nausea/vomiting, no abdominal pain No change in bowel habits noted He has a couple of his Rx refilled He had his follow-up labs done a few days ago - to discuss his results Patient adds that he had his repeat colonoscopy done at the end of last month (June 2024) and recalls being advised his colonoscopy was normal except for some small internal hemorrhoids and that his next colonoscopy will be in 10 years [facility] Medical History Diabetes mellitus Paresthesia of right lower extremity Spinal stenosis of lumbar region with radiculopathy Overweight (BMI 25.0-29.9) Calcaneal spur, left Osteoarthritis of left shoulder Lumbar degenerative disc disease Allergic rhinitis Vitamin D deficiency Benign essential hypertension Pure hypercholesterolemia Surgical History (Updated 07/31/24 @ 10:30 by Ramo Thomas MD) History of colonoscopy No significant past surgical history Family History Father Hypertension Diabetes mellitus Social History Housing: House Alcohol intake: current Alcohol intake frequency: a few times a month Alcohol type: wine Patient Tobacco Use Status: Never used Tobacco e-Cigarette/Vaping Use: Never Used Second Hand Smoke Exposure: No service: No Current occupational status: employed 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 1. Little interest or pleasure in doing things: not at all 2. Feeling down, depressed, or hopeless: not at all 3. Trouble falling or staying asleep, or sleeping too much: not at all 4. Feeling tired or having little energy: not at all 5. Poor appetite or overeating: not at all 6. Feeling bad about yourself - or that you are a failure or have let yourself or your family down: not at all 7. Trouble concentrating on things, such as reading the newspaper or watching television: not at all 8. Moving or speaking so slowly that other people could have noticed. Or the opposite - being so fidgety or restless that you have been moving around a lot more than usual: not at all 9. Thoughts that you would be better off or of hurting yourself in some way: not at all Total score: 0 Depression Screening Interpretation: Negative Depression Screening Done: Yes 08283 - PHQ-9 Billing: Yes Source: Developed by Drs. Dieudonne Marion, Nerissa Sweeney, Lalo Emmanuel and colleagues, with an educational mandeep from [employer]. Thrive Questionnaire Date Thrive assessed: 07/31/24 I am a: Patient What is your living situation today?: I have a steady place to live Within the past 12 months, did the food you bought not last and you didn't have the money to get more?: Never true Within the past 12 months, did you worry whether your food would run out before you got money to buy more?: Never true Do you have trouble paying for medicines?: No Do you have trouble getting transportation to medical appointments?: No Do you have trouble paying your heating and electricity bill?: No Do you have trouble taking care of your child, family member or friend?: No Do you have trouble with day-to-day activities such as bathing, preparing meals, shopping, managing finances, etc.?: No Are you currently unemployed and looking for a job?: No Are you interested in more education?: No Please select the resources that you would like help with: None Currently or been in a relationship where the following occur: No concerns reported THRIVE Score: 0 AUDIT C Alcohol Use Questionnaire (AUDIT-C) 1. How often do you have a drink containing alcohol?: 2-4 times a month 2. How many drinks containing alcohol do you have on a typical day when you are drinking?: 1 or 2 3. How often do you have six or more drinks on one occasion?: Never Total Score: 2 Score Reviewed/Action Taken: Yes AMIRA-7 AMB Questionnaire AMIRA-7 Date AMIRA - 7 assessed: 07/31/24 Feeling nervous, anxious, or on edge: 0 = Not at all Not being able to stop or control worryin = Not at all Worrying too much about different things: 0 = Not at all Trouble relaxin = Not at all Being so restless that it is hard to sit still: 0 = Not at all Becoming easily annoyed or irritable: 0 = Not at all Feeling afraid as if something awful might happen: 0 = Not at all Total AMIRA-7 score (0-4 normal; 5-9 mild; 10-14 moderate; 15-21 severe): 0 Source: Developed by Drs. Dieudonne Marion, Nerissa Sweeney, Lalo Emmanuel and colleagues, with an educational mandeep from [employer]. Review of Systems Const Denies chills, Denies fatigue, Denies fever(s) and Denies headache(s) ENT Denies dysphagia, Denies dizziness, Denies otalgia, Denies headache(s), Denies neck pain, Denies odynophagia and Denies sore throat Card Denies chest pain, Denies palpitations and Denies dyspnea Resp Denies chest congestion, Denies cough and Denies dyspnea GI Denies abdominal pain, Denies constipation, Denies dysphagia, Denies heartburn, Denies diarrhea, Denies nausea, Denies odynophagia and Denies vomiting Denies difficulty urinating, Denies dysuria, Denies nocturia and Denies urinary frequency Musc Reports back pain (recurrent - improved slightly with PT in the past but failed back injection), Denies neck pain, Reports radiating pain into limb (down into the right leg) and Reports tingling (into the right leg and foot, on and off) Skin/Breast Denies rash Neuro Denies dizziness, Denies headache(s) and Reports tingling (into the right leg and foot, on and off) Endo Denies fatigue and Denies palpitations Physical exam (Primary Care) Vital Signs: Last Vital Signs Pulse 81 07/31/24 09:50 BP 132/80 07/31/24 09:50 Pulse Ox 97 07/31/24 09:50 Oxygen Delivery Method Room Air 07/31/24 09:50 BMI result Body Mass Index 29.6 Tobacco/Smoking Status: Tobacco use Status Tobacco use date assessed 07/31/24 07/31/24 09:55 Patient Tobacco Use Status Never used Tobacco 07/31/24 09:55 e-Cigarette/Vaping Use Never Used 07/31/24 09:55 PHQ-9: PHQ-9 Score PHQ-9: Total score 0 07/31/24 09:55 Depression Screening Interpretation: Negative Thrive Assessment: Date of Thrive Assessment Date Thrive assessed 07/31/24 07/31/24 09:55 Currently or been in a relationship where the following occur: No concerns reported Const General: no acute distress and alert HENMT Ears: TM's normal bilaterally and EAC's normal Throat: Yes posterior oropharynx normal and Yes tonsils normal Neck Neck: Yes supple and No lymphadenopathy Thyroid: Thyroid normal Resp Auscultation: clear to auscultation bilaterally, no rales and no wheezes Cardio Rate: regular rate Rhythm: regular rhythm Heart sounds: no murmurs GI Palpation (GI): Soft to palpation and nontender Auscultation: normal bowel sounds General: Yes no CVA tenderness Back/Spine/Pelvis Back: no CVA tenderness Thoracic/Lumbar Spine: lumbar spinal tenderness and straight leg raise positive (mild) Extrem General: Yes no clubbing, cyanosis or edema Results Reviewed Results Reviewed: Laboratory Tests 07/27/24 07/27/24 10:22 10:32 WBC 5.3 Hgb 13.4 L Hct 39.5 L Plt Count 333 Sodium 137 Potassium 3.8 Creatinine 0.83 Estimated GFR > 60 Fasting Glucose 119 H Hemoglobin A1c % 6.3 H Calcium 9.2 AST 54 H ALT 45 H Triglycerides 113 Cholesterol 151 LDL Cholesterol, Calc 77 HDL Cholesterol 52 25-OH Vitamin D Total 32.1 TSH 0.43 Ur Specific [place] 1.015 Urine Protein Negative Urine Glucose (UA) Negative Urine Blood Negative Urine Nitrite Negative Ur Leukocyte Esterase Negative Microalb/Creat Ratio 6.6 Coding Level of Care Code Est Pt Level 4 (67571) Complex EM visit Add On G2211 Diagnoses Pure hypercholesterolemia E78.00 Benign essential hypertension I10 Type 2 diabetes mellitus with hyperglycemia, without long-term current use of insulin E11.65 Diabetes mellitus type: type 2 Diabetes mellitus fpc insulin use: without fpc use Diabetes mellitus complication status: with hyperglycemia Vitamin D deficiency E55.9 Elevated LFTs R79.89 Spinal stenosis of lumbar region with radiculopathy M48.061; M54.16 Primary osteoarthritis of left shoulder M19.012 Osteoarthritis type: primary Allergic rhinitis, unspecified seasonality, unspecified trigger J30.9 Allergic rhinitis trigger: unspecified Allergic rhinitis seasonality: unspecified Overweight (BMI 25.0-29.9) E66.3 Additional Codes PHQ-9 - 46903 - PHQ-9 Billing: Yes ([id number]) Assessment & Plan Assessment & Plan (1) Pure hypercholesterolemia: Code(s): E78.00 - Pure hypercholesterolemia, unspecified Category: Medical Plan: Results of his labs done a few days ago reviewed and discussed with patient - his cholesterol numbers have all improved significantly from previous now that he is back on his cholesterol medication regularly Reinforced low cholesterol diet Continue Atorvastatin 20 mg QD Will recheck his labs and fasting lipids in 4 months for follow up (2) Benign essential hypertension: Code(s): I10 - Essential (primary) hypertension Category: Medical Plan: Reinforced low sodium diet - goal is systolic BP of 120 mm or less Continue Lisinopril-HCT 20-25 mg QD (3) Diabetes mellitus: Code(s): E11.9 - Type 2 diabetes mellitus without complications Category: Medical Qualifiers: Diabetes mellitus type: type 2 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 Diabetes mellitus complication status: with hyperglycemia Qualified Code(s): E11.65 - Type 2 diabetes mellitus with hyperglycemia Plan: His HgbA1c was at 6.3% on his labs done a few days ago (was previously at 6.1% a few months ago) - goal is ideally <6.5% Reinforced diabetic diet Continue Metformin 500 mg QD (4) Vitamin D deficiency: Code(s): E55.9 - Vitamin D deficiency, unspecified Category: Medical Plan: Continue Vitamin D2 99237 units once a week (5) Elevated LFTs: Code(s): R79.89 - Other specified abnormal findings of blood chemistry Category: Medical Plan: He is advised that his both of his liver enzymes have gone up again on his recent labs, most likely in relation to his recent weight gain Patient had an abdominal US done back in January 2022 that came out normal He is again cautioned against taking too many Tylenol/Acetaminophen and is also reminded to abstain from alcohol completely Will continue to monitor his LFTs regularly (6) Spinal stenosis of lumbar region with radiculopathy: Comment: Lumbar spine MRI done on 06/16/2012 showed (+) spondylitic and degenerative disc changes of the lumbar spine superimposed upon a congenitally narrowed spinal canal, with foraminal narrowing most prominent at L5-S1. No discrete nerve root impingement was seen at this time Code(s): M48.061 - Spinal stenosis, lumbar region without neurogenic claudication; M54.16 - Radiculopathy, lumbar region Category: Medical Plan: Reinforced activity and weight-lifting restrictions Continue Tramadol 50 mg TID PRN for increased pain He has been seen by neurosurgery in the past and was referred to physical therapy - he has been to PT about 3 times and states that physical therapy has helped somewhat but only temporarily He has also received back injections from Dr. Kaba back on 01/30/2021, which he states helped somewhat but another injection in November 2022 only provided him with some relief for a week He has been advised to continue following up with Dr. Kaba for management of his low back pain Due to his recently increasing low back pain and right lumbar radicular pain, we requested a repeat lumbar spine MRI for further evaluation last year but this was denied by insurance States that neurosurgery at [facility] will NOT schedule him for an appointment unless he has an updated MRI done but his insurance continues to deny his procedure We tried referring him to the spine center here at [facility] for further evaluation last year but patient states that he never heard back from anyone regarding this referral (7) Osteoarthritis of left shoulder: Code(s): M19.012 - Primary osteoarthritis, left shoulder Category: Medical Qualifiers: Osteoarthritis type: primary Qualified Code(s): M19.012 - Primary osteoarthritis, left shoulder Plan: X-rays of the left shoulder done a couple of years ago showed (+) mild to moderate arthritis changes Continue Celecoxib 200 mg QD PRN Patient is again encouraged to continue with regular shoulder exercises to help manage his shoulder symptoms more effectively (8) Allergic rhinitis: Code(s): J30.9 - Allergic rhinitis, unspecified Category: Medical Qualifiers: Allergic rhinitis trigger: unspecified Allergic rhinitis seasonality: unspecified Qualified Code(s): J30.9 - Allergic rhinitis, unspecified Plan: Continue Fluticasone 50 mcg nasal spray QD PRN (9) Overweight (BMI 25.0-29.9): Code(s): E66.3 - Overweight Category: Medical Plan: Reinforced diet/exercise as tolerated/lose weight Plan Follow up in 4 months Orders: Orders Comprehensive [place]. Panel Fast 4 Months E78.00 - Pure hypercholesterolemia, unspecified Lipid Panel 4 Months E78.00 - Pure hypercholesterolemia, unspecified Hemoglobin A1c 4 Months E11.9 - Type 2 diabetes mellitus without complications Microalbumin, Random (w Creat) 4 Months E11.9 - Type 2 diabetes mellitus without complications UA CC w/rflx Micro + Cult 4 Months R30.0 - Dysuria Vitamin D 25-OH Total 4 Months E55.9 - Vitamin D deficiency, unspecified Complete Blood Count Auto Diff 4 Months D64.9 - Anemia, unspecified TSH reflex Free T4 4 Months E78.00 - Pure hypercholesterolemia, unspecified Prostate Specific Antigen 4 Months N40.0 - Benign prostatic hyperplasia without lower urinary tract symptoms Medications: Changed From atorvastatin 20 mg PO DAILY 30 tabs 4RF To atorvastatin 20 mg PO DAILY 90 days 90 tabs 1RF From metformin 500 mg PO DAILY 30 days 30 tabs 3RF E11.9 - Type 2 diabetes mellitus without complications To metformin 500 mg PO DAILY 90 days 90 tabs 1RF E11.9 - Type 2 diabetes mellitus without complications
[2024-07-31 09:50] VITALS: BP 132/80; PULSE 81; O2SAT 97; BMI 29.6
== END 2024-07-31 10:36 | disposition home or self-care (01) ==
PROVIDERS: PCP Internal Medicine; Visit Provider Internal Medicine
DX: E78.00 Pure hypercholesterolemia, unspecified (principal); I10 Essential (primary) hypertension; E11.65 Type 2 diabetes mellitus with hyperglycemia; E55.9 Vitamin D deficiency, unspecified; R79.89 Other specified abnormal findings of blood chemistry; M48.061 Spinal stenosis, lumbar region without neurogenic claudication; M54.16 Radiculopathy, lumbar region; M19.012 Primary osteoarthritis, left shoulder; J30.9 Allergic rhinitis, unspecified; E66.3 Overweight

== ENCOUNTER → 2024-07-31 09:37 | Outpatient (BNVA) | payer OTHER, SELFPAY | PROVIDERS: PCP Internal Medicine; Visit Provider Internal Medicine | DX: E78.00 Pure hypercholesterolemia, unspecified (principal); I10 Essential (primary) hypertension; E11.65 Type 2 diabetes mellitus with hyperglycemia; E55.9 Vitamin D deficiency, unspecified; R79.89 Other specified abnormal findings of blood chemistry; M48.061 Spinal stenosis, lumbar region without neurogenic claudication; M54.16 Radiculopathy, lumbar region; M19.012 Primary osteoarthritis, left shoulder; J30.9 Allergic rhinitis, unspecified; E66.3 Overweight; Z68.29 Body mass index [BMI] 29.0-29.9, adult; Z79.84 Long term (current) use of oral hypoglycemic drugs; Z79.899 Other long term (current) drug therapy | CPT/HCPCS: 96127 ==

== ENCOUNTER 2024-12-18 11:34 | Outpatient (REF) | payer OTHER, SELFPAY ==
[2024-12-18 11:46] LABS: MANUAL DIFF FLAG NO
[2024-12-18 12:22] LABS: Hematocrit 37.4 % (42.0-52.0); Hemoglobin 13.4 g/dl (14.0-18.0); Imm Gran Abs Auto 0.01 X10*3/uL (0.00-0.03); Imm Gran Pct Auto 0.2 % (0.0-0.4); Lymphocytes Absolute Auto 1.9 X10*3/uL (1.2-4.9); Mean Corpuscular HGB Conc 35.8 g/dl (31.0-36.0); Mean Corpuscular Hemoglobin 30.5 pg (27.0-33.0); Mean Corpuscular Volume 85.2 fL (80.0-98.0); NRBC Abs Auto 0.000 X10*3/uL (0.0-0.012); NRBC Pct Auto 0.0 /100WBC (0.0-0.2); Platelet Count 305 X10*3/uL (160-400); Red Blood Count 4.39 X10*6/uL (4.60-5.80); White Blood Count 5.4 X10*3/uL (4.8-10.8)
[2024-12-18 12:29] LABS: Hemoglobin A1C 153.2547 umol/L; Total Hemoglobin (HGBA1C) 3532.8650 umol/L
[2024-12-18 12:39] LABS: Appearance Urine Clear; Glucose Urine UA Negative (Negative); PH 7.5 (5.0-9.0); Specific Gravity - Urine 1.010 (1.005-1.025)
[2024-12-18 13:54] LABS: Alanine Aminotransferase 43 U/L (0-40); Albumin Level 4.5 g/dL (3.5-5.0); Alkaline Phosphatase 64 U/L (39-117); Anion Gap 13 (12-20); Aspartate Amino Transferase 63 U/L (5-37); Blood Urea Nitrogen 18 mg/dL (9-16); Calcium 9.5 mg/dL (8.4-10.2); Carbon Dioxide 29 mmol/L (22-29); Chloride 100 mmol/L (96-108); Cholesterol 150 mg/dL (<200); Estimated Glomerular Filt Rate > 60; HDL Cholesterol 51 mg/dL (>40); Potassium 3.5 mmol/L (3.3-5.1); Sodium 138 mmol/L (135-145); Total Protein 7.1 g/dL (6.5-8.0); Triglycerides 114 mg/dL (<150)
[2024-12-18 14:05] LABS: Prostate Specific Antigen 0.68 ng/mL (<0.05-4.0)
== END 2024-12-18 11:35 | disposition home or self-care (01) ==
LOC: HO.LAB 11:34
PROVIDERS: PCP Internal Medicine; Visit Provider Internal Medicine
DX: E11.9 Type 2 diabetes mellitus without complications (principal); E78.00 Pure hypercholesterolemia, unspecified; R30.0 Dysuria; E55.9 Vitamin D deficiency, unspecified; N40.0 Benign prostatic hyperplasia without lower urinary tract symptoms; D64.9 Anemia, unspecified; Z12.5 Encounter for screening for malignant neoplasm of prostate
CPT/HCPCS: 36415; 80053; 80061; 81003; 82043; 82306; 82570; 83036; 84153; 84443; 85025

== ENCOUNTER 2025-02-01 08:48 | Outpatient (AMB) | payer OTHER, SELFPAY ==
--- NOTE | 2025-02-01 09:17 | MHC.PC.OV ---
Vital Signs 02/01/25 09:18 Height 5 ft 11 in Weight 211 lb BMI 29.4 BP 110/72 Blood Pressure Location Lt brachial Position Sitting Pulse 65 Pulse Source Pulse Oximeter Pulse Oximetry (%) 98 Oxygen Delivery Method Room Air Intake Visit Reasons: DM Acquisition Marketing Manager Required: No Accompanied by: Self / Same As Patient Allergies No Known Allergies Allergy (Verified 02/01/25 09:48) Medication List - Last Reconciled 02/01/25 by Ramo Thomas MD aspirin (Adult Low Dose Aspirin) 81 mg PO DAILY atorvastatin 20 mg PO DAILY 90 days celecoxib 200 mg PO DAILY PRN ergocalciferol (vitamin D2) (Vitamin D2) 1,250 mcg PO QWEEK fluticasone propionate 50 mcg/actuation 1 spray intranasal DAILY lisinopril-hydrochlorothiazide 20-25 mg 1 tab PO DAILY metformin 500 mg PO DAILY 90 days tizanidine 4 mg PO TID PRN 30 days tramadol 50 mg PO BID PRN Tobacco use date assessed: 02/01/25 Fall risk assessment: No Falls in past year Last assessed Fall Risk: 02/01/25 Dental Screening Dental Screen Date: 02/01/25 Did you have a dental visit in the last 12 months?: Yes Did you have a dental problem in the last 6 months where you did not have access to dental care?: No Was dental information given to patient?: Patient has dentist HPI KATIUSKA HPI Details Patient comes in today for his follow up visit States that he had a terrible chest cold last week - did not test himself for COVID Notes that his son was also sick with similar symptoms around the same time States that he just took some OTC cough/cold meds, including Mucinex, over the past week and that his respiratory symptoms have been slowly clearing up He denies any fever or sore throat; denies any headaches or dizziness Denies any chest pains, no increased SOB No nausea/vomiting, no abdominal pain No change in bowel habits noted Needs his Tramadol Rx refilled He had his follow up labs done last month - to discuss his results States that he missed his appointment last month as he had a in the family and had to reschedule his appointment [facility] Medical History Diabetes mellitus Paresthesia of right lower extremity Spinal stenosis of lumbar region with radiculopathy Overweight (BMI 25.0-29.9) Calcaneal spur, left Osteoarthritis of left shoulder Lumbar degenerative disc disease Allergic rhinitis Vitamin D deficiency Benign essential hypertension Pure hypercholesterolemia Surgical History History of colonoscopy No significant past surgical history Family History Father Hypertension Diabetes mellitus Social History Housing: House Alcohol intake: current Alcohol intake frequency: a few times a month Alcohol type: wine Patient Tobacco Use Status: Never used Tobacco e-Cigarette/Vaping Use: Never Used Second Hand Smoke Exposure: No service: No Current occupational status: employed 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 1. Little interest or pleasure in doing things: not at all 2. Feeling down, depressed, or hopeless: not at all 3. Trouble falling or staying asleep, or sleeping too much: not at all 4. Feeling tired or having little energy: not at all 5. Poor appetite or overeating: not at all 6. Feeling bad about yourself - or that you are a failure or have let yourself or your family down: not at all 7. Trouble concentrating on things, such as reading the newspaper or watching television: not at all 8. Moving or speaking so slowly that other people could have noticed. Or the opposite - being so fidgety or restless that you have been moving around a lot more than usual: not at all 9. Thoughts that you would be better off or of hurting yourself in some way: not at all Total score: 0 Depression Screening Interpretation: Negative Depression Screening Done: Yes 88633 - PHQ-9 Billing: Yes Source: Developed by Drs. Dieudonne Marion, Nerissa Sweeney, Lalo Emmanuel and colleagues, with an educational mandeep from [employer]. Thrive Questionnaire Date Thrive assessed: 02/01/25 I am a: Patient What is your living situation today?: I have a steady place to live Within the past 12 months, did the food you bought not last and you didn't have the money to get more?: Never true Within the past 12 months, did you worry whether your food would run out before you got money to buy more?: Never true Do you have trouble paying for medicines?: No Do you have trouble getting transportation to medical appointments?: No Do you have trouble paying your heating and electricity bill?: No Do you have trouble taking care of your child, family member or friend?: No Do you have trouble with day-to-day activities such as bathing, preparing meals, shopping, managing finances, etc.?: No Are you currently unemployed and looking for a job?: Yes Are you interested in more education?: Yes Please select the resources that you would like help with: None Currently or been in a relationship where the following occur: No concerns reported THRIVE Score: 0 AUDIT C Alcohol Use Questionnaire (AUDIT-C) 1. How often do you have a drink containing alcohol?: 2-4 times a month 2. How many drinks containing alcohol do you have on a typical day when you are drinking?: 1 or 2 3. How often do you have six or more drinks on one occasion?: Never Total Score: 2 Score Reviewed/Action Taken: Yes AMIRA-7 AMB Questionnaire AMIRA-7 Date AMIRA - 7 assessed: 02/01/25 Feeling nervous, anxious, or on edge: 0 = Not at all Not being able to stop or control worryin = Not at all Worrying too much about different things: 0 = Not at all Trouble relaxin = Not at all Being so restless that it is hard to sit still: 0 = Not at all Becoming easily annoyed or irritable: 0 = Not at all Feeling afraid as if something awful might happen: 0 = Not at all Total AMIRA-7 score (0-4 normal; 5-9 mild; 10-14 moderate; 15-21 severe): 0 Source: Developed by Drs. Dieudonne Marion, Nerissa Sweeney, Lalo Emmanuel and colleagues, with an educational mandeep from [employer]. Review of Systems Const Denies chills, Denies fatigue, Denies fever(s) and Denies headache(s) ENT Denies dysphagia, Denies dizziness, Denies otalgia, Denies headache(s), Denies neck pain, Denies odynophagia and Denies sore throat Card Denies chest pain, Denies palpitations and Denies dyspnea Resp Reports chest congestion (mild; resolving), Reports cough (occasional; non-productive - feels that this is clearing up), Denies dyspnea and Denies wheezing GI Denies abdominal pain, Denies constipation, Denies dysphagia, Denies heartburn, Denies diarrhea, Denies nausea, Denies odynophagia and Denies vomiting Denies difficulty urinating, Denies dysuria, Denies nocturia and Denies urinary frequency Musc Reports back pain (recurrent - improved slightly with PT in the past but failed back injection), Denies neck pain, Reports radiating pain into limb (down into the right leg, at times) and Reports tingling (into the right leg and foot, on and off) Skin/Breast Denies rash Neuro Denies dizziness, Denies headache(s) and Reports tingling (into the right leg and foot, on and off) Endo Denies fatigue and Denies palpitations Aller/Immun Denies wheezing Physical exam (Primary Care) Vital Signs: Last Vital Signs Pulse 65 02/01/25 09:18 BP 110/72 02/01/25 09:18 Pulse Ox 98 02/01/25 09:18 Oxygen Delivery Method Room Air 02/01/25 09:18 BMI result Body Mass Index 29.4 Tobacco/Smoking Status: Tobacco use Status Tobacco use date assessed 02/01/25 02/01/25 09:21 Patient Tobacco Use Status Never used Tobacco 02/01/25 09:21 e-Cigarette/Vaping Use Never Used 02/01/25 09:21 PHQ-9: PHQ-9 Score PHQ-9: Total score 0 02/01/25 09:21 Depression Screening Interpretation: Negative Thrive Assessment: Date of Thrive Assessment Date Thrive assessed 02/01/25 02/01/25 09:21 Currently or been in a relationship where the following occur: No concerns reported Const General: no acute distress and alert HENMT Ears: TM's normal bilaterally and EAC's normal Throat: Yes posterior oropharynx normal and Yes tonsils normal Neck Neck: Yes supple and No lymphadenopathy Thyroid: Thyroid normal Resp Auscultation: clear to auscultation bilaterally, no rales, rhonchi (occasional) and no wheezes Cardio Rate: regular rate Rhythm: regular rhythm Heart sounds: no murmurs GI Palpation (GI): Soft to palpation and nontender Auscultation: normal bowel sounds General: Yes no CVA tenderness Back/Spine/Pelvis Back: no CVA tenderness Thoracic/Lumbar Spine: lumbar spinal tenderness and straight leg raise positive (mild) Extrem General: Yes no clubbing, cyanosis or edema Results Reviewed Results Reviewed: Laboratory Tests 12/18/24 11:45 WBC 5.4 Hgb 13.4 L Hct 37.4 L Plt Count 305 Sodium 138 Potassium 3.5 Creatinine 0.94 Estimated GFR > 60 Fasting Glucose 108 H Hemoglobin A1c % 6.1 H Calcium 9.5 AST 63 H ALT 43 H Triglycerides 114 Cholesterol 150 LDL Cholesterol, Calc 77 HDL Cholesterol 51 Prostate Specific Ag 0.68 25-OH Vitamin D Total 33.8 TSH 0.71 Ur Specific [place] 1.010 Urine Protein Negative Urine Glucose (UA) Negative Urine Blood Negative Urine Nitrite Negative Ur Leukocyte Esterase Negative Coding Level of Care Code Est Pt Level 4 (00461) Diagnoses Pure hypercholesterolemia E78.00 Benign essential hypertension I10 Type 2 diabetes mellitus with hyperglycemia, without long-term current use of insulin E11.65 Diabetes mellitus type: type 2 Diabetes mellitus rodent exterminator insulin use: without rodent exterminator use Diabetes mellitus complication status: with hyperglycemia Elevated LFTs R79.89 Vitamin D deficiency E55.9 Spinal stenosis of lumbar region with radiculopathy M48.061; M54.16 Primary osteoarthritis of left shoulder M19.012 Osteoarthritis type: primary Allergic rhinitis, unspecified seasonality, unspecified trigger J30.9 Allergic rhinitis trigger: unspecified Allergic rhinitis seasonality: unspecified Overweight (BMI 25.0-29.9) E66.3 Additional Codes PHQ-9 - 17632 - PHQ-9 Billing: Yes ([id number]) Assessment & Plan Assessment & Plan (1) Pure hypercholesterolemia: Code(s): E78.00 - Pure hypercholesterolemia, unspecified Category: Medical Plan: Results of his labs done last month reviewed and discussed with patient Reinforced low cholesterol diet Continue Atorvastatin 20 mg QD Will recheck his labs and fasting lipids in 4 months for follow up (2) Benign essential hypertension: Code(s): I10 - Essential (primary) hypertension Category: Medical Plan: Reinforced low sodium diet - goal is systolic BP of 120 mm or less Continue Lisinopril-HCT 20-25 mg QD (3) Diabetes mellitus: Code(s): E11.9 - Type 2 diabetes mellitus without complications Category: Medical Qualifiers: Diabetes mellitus type: type 2 Diabetes mellitus rodent exterminator insulin use: without rodent exterminator use Diabetes mellitus complication status: with hyperglycemia Qualified Code(s): E11.65 - Type 2 diabetes mellitus with hyperglycemia Plan: His HgbA1c was at 6.1% on his labs done last month (was previously at 6.3% a few months ago) - goal is ideally <6.5% Reinforced diabetic diet Continue Metformin 500 mg QD (4) Elevated LFTs: Code(s): R79.89 - Other specified abnormal findings of blood chemistry Category: Medical Plan: Patient is advised that his both of his liver enzymes are still elevated on his recent labs done last month - is most likely a combination of fatty liver as well as his cholesterol Rx Abdominal US done back in January 2022 came out normal He is again cautioned against taking too many Tylenol/Acetaminophen and is also reminded to abstain from alcohol completely Will continue to monitor his LFTs regularly (5) Vitamin D deficiency: Code(s): E55.9 - Vitamin D deficiency, unspecified Category: Medical Plan: Continue Vitamin D2 84709 units once a week (6) Spinal stenosis of lumbar region with radiculopathy: Comment: Lumbar spine MRI done on 06/16/2012 showed (+) spondylitic and degenerative disc changes of the lumbar spine superimposed upon a congenitally narrowed spinal canal, with foraminal narrowing most prominent at L5-S1. No discrete nerve root impingement was seen at this time Code(s): M48.061 - Spinal stenosis, lumbar region without neurogenic claudication; M54.16 - Radiculopathy, lumbar region Category: Medical Plan: Reinforced activity and weight-lifting restrictions Continue Tramadol 50 mg TID PRN for increased pain - Rx refilled He has been seen by neurosurgery in the past and was referred to physical therapy - he has been to PT about 3 times and states that physical therapy has helped somewhat but only temporarily He has also received back injections from Dr. Kaba back on 01/30/2021, which he states helped somewhat but another injection in November 2022 only provided him with some relief for a week He has been advised to continue following up with Dr. Kaba for management of his low back pain Due to his recently increasing low back pain and right lumbar radicular pain, we requested a repeat lumbar spine MRI for further evaluation last year but this was denied by insurance States that neurosurgery at [facility] will NOT schedule him for an appointment unless he has an updated MRI done but his insurance continues to deny his procedure We tried referring him to the spine center here at [facility] for further evaluation last year but patient states that he never heard back from anyone regarding this referral, likely also because he does not have an updated lumbar spine MRI to work with (7) Osteoarthritis of left shoulder: Code(s): M19.012 - Primary osteoarthritis, left shoulder Category: Medical Qualifiers: Osteoarthritis type: primary Qualified Code(s): M19.012 - Primary osteoarthritis, left shoulder Plan: X-rays of the left shoulder done a couple of years ago showed (+) mild to moderate arthritis changes Continue Celecoxib 200 mg QD PRN Patient is again encouraged to continue with regular shoulder exercises to help manage his shoulder symptoms more effectively (8) Allergic rhinitis: Code(s): J30.9 - Allergic rhinitis, unspecified Category: Medical Qualifiers: Allergic rhinitis trigger: unspecified Allergic rhinitis seasonality: unspecified Qualified Code(s): J30.9 - Allergic rhinitis, unspecified Plan: Continue Fluticasone 50 mcg nasal spray QD PRN (9) Overweight (BMI 25.0-29.9): Code(s): E66.3 - Overweight Category: Medical Plan: Reinforced diet/exercise as tolerated/lose weight Plan Follow up in 4 months Orders: Orders Complete Blood Count Auto Diff 4 Months D64.9 - Anemia, unspecified TSH reflex Free T4 4 Months E78.00 - Pure hypercholesterolemia, unspecified Vitamin D 25-OH Total 4 Months E55.9 - Vitamin D deficiency, unspecified Vitamin B12 and Folate 4 Months E53.8 - Deficiency of other specified B group vitamins Comprehensive [place]. Panel Fast 4 Months E78.00 - Pure hypercholesterolemia, unspecified Lipid Panel 4 Months E78.00 - Pure hypercholesterolemia, unspecified Hemoglobin A1c 4 Months E11.9 - Type 2 diabetes mellitus without complications Microalbumin, Random (w Creat) 4 Months E11.9 - Type 2 diabetes mellitus without complications UA CC w/rflx Micro + Cult 4 Months R30.0 - Dysuria Medications: Refilled tramadol 50 mg PO BID PRN 60 tabs 0RF pain
[2025-02-01 09:18] VITALS: BP 110/72; PULSE 65; O2SAT 98; BMI 29.4
== END 2025-02-01 09:57 | disposition home or self-care (01) ==
LOC: HO.HMCH 08:49
PROVIDERS: PCP Internal Medicine; Visit Provider Internal Medicine
DX: E78.00 Pure hypercholesterolemia, unspecified (principal); I10 Essential (primary) hypertension; E11.65 Type 2 diabetes mellitus with hyperglycemia; R79.89 Other specified abnormal findings of blood chemistry; E55.9 Vitamin D deficiency, unspecified; M48.061 Spinal stenosis, lumbar region without neurogenic claudication; M54.16 Radiculopathy, lumbar region; M19.012 Primary osteoarthritis, left shoulder; J30.9 Allergic rhinitis, unspecified; E66.3 Overweight

== ENCOUNTER → 2025-02-01 08:48 | Outpatient (BNVA) | payer OTHER, SELFPAY | PROVIDERS: PCP Internal Medicine; Visit Provider Internal Medicine | DX: E11.65 Type 2 diabetes mellitus with hyperglycemia (principal); E78.00 Pure hypercholesterolemia, unspecified; I10 Essential (primary) hypertension; R79.89 Other specified abnormal findings of blood chemistry; E55.9 Vitamin D deficiency, unspecified; M54.16 Radiculopathy, lumbar region; M19.012 Primary osteoarthritis, left shoulder; J30.9 Allergic rhinitis, unspecified; E66.3 Overweight; Z68.29 Body mass index [BMI] 29.0-29.9, adult | CPT/HCPCS: 96127 ==